=== PATIENT | male | born 1950 | race Caucasian/White ===

== ENCOUNTER 2017-02-06 16:53 | Inpatient (IN) | payer OTHER ==
[2017-02-06 19:07] LABS: MANUAL DIFF NEEDED? NO
[2017-02-06 19:12] LABS: BASO% 0.2 % (0.0-0.8); EOS# 0.31 X1000 (0.0-0.7); EOS% 1.9 % (0.0-10.0); HEMATOCRIT 43.5 % (42.0-52.0); HEMOGLOBIN 14.4 g/dL (14.0-18.0); IMM GRAN# 0.07 X1000 (0.0-0.04); IMM GRAN% 0.4 % (0.0-0.5); LYMPH% 12.3 % (20.5-51.1); MCH 29.9 PG (27-31); MCHC 33.1 g/dL (33-37); MCV 90.4 FL (81-99); MONO# 1.08 X1000 (0.11-0.59); MONO% 6.7 % (1.7-9.3); MPV 12.1 FL (7.4-10.4); NEUT% 78.5 % (42.2-75.2); PLT 257 X1000 (130-400); RBC 4.81 XMIL (4.7-6.1)
[2017-02-06] MEDS ORDERED: NS 1,000 ML IV ONE (19:22)
[2017-02-06 19:31] LABS: AGAP 17; ALBUMIN 3.8 g/dL (3.5-5.0); ALKALINE PHOSPHATASE 191 U/L (32-122); BUN 11 mg/dL (8-22); CALCIUM 7.3 mg/dL (8.8-10.2); CHLORIDE 102 mmol/L (98-107); COSMO 284; GOT 45 U/L (10-34); GPT 65 U/L (10-44); POTASSIUM 3.7 mmol/L (3.5-5.1); SODIUM 141 mmol/L (136-145); TCO2 22 mmol/L (25-35); TOTAL BILIRUBIN 1.17 mg/dL (0.20-1.00); TOTAL PROTEIN 6.5 g/dL (6.3-8.3)
--- NOTE | 2017-02-06 19:37 | PROVIDER DOCUMENTATION ---
HPI-General Adult - General Chief Complaint: Rectal Bleeding Stated Complaint: RECTAL BLEEDING Time Seen by Provider: 02/06/17 18:40 Allergies/Adverse Reactions: Patient Allergies Allergy/AdvReac Type Severity Reaction Status Date / Time No Known Allergies Allergy Verified 02/06/17 18:36 Home Medications: Home Medication List Medication Instructions Recorded Confirmed Last Taken Type Amlodipine Besylate/Benazepril 1 each PO DAILY 01/20/14 02/06/17 02/06/17 09:00 History [Lotrel 10/20 mg Capsule] Bisoprolol/Hctz [Ziac 10/6.25 mg] 1 each PO DAILY 01/20/14 02/06/17 02/06/17 09: 00 History Insuln Asp Prt/Aspart [Novolog Mix 20 unit SUBQ QPM 01/20/14 02/06/17 02/06/17 09:00 History 70/30] Omeprazole [Prilosec] 20 mg PO DAILY 01/20/14 02/06/17 01/22/14 04:30 History - History of Present Illness -Gen Adult Nature of Presenting Problems: Pt was discharged from just prior to driving here. He was admitted for N/V and syncope. He had a BP with rectal bleeding and made the staff aware and they called the doctor and discharged him. He also was told that he has a lung mass at that was biopsied and he is to follow up with a pulm in [place]. He came here for the rectal bleeding. Adrien blood noted on patients pants, boxers and soaked through to bedding Review of Systems - Adult - REVIEW OF SYSTEMS - ADULT Constitutional: reports: no symptoms reported. denies: chills, fever, weight gain, weight loss Eyes: reports: no symptoms reported. denies: discharge, dry eyes, decreased vision, double vision, eye pain, redness Ears, Nose, Mouth & Throat: reports: no symptoms reported. denies: hearing loss , tinnitus, epistaxis, sinus problem, loose teeth, mouth/dental pain, mouth swelling, hoarseness, throat swelling Cardiovascular: reports: no symptoms reported. denies: chest pain, edema, irregular heart rate, poor circulation, PND, syncope Respiratory: reports: no symptoms reported. denies: chronic cough, cough, excessive sputum production, pleurisy, shortness of breath Gastrointestinal: reports: see HPI, rectal bleeding. denies: abdominal pain, hematemesis, constipation, diarrhea, difficulty swallowing, frequent heartburn, nausea, poor appetite, vomiting Genitourinary: reports: no symptoms reported. denies: dysuria, discharge, flank pain, hematuria, incontinence, urinary retention, urgency Musculoskeletal: reports: no symptoms reported. denies: bone pain, back pain, frequent leg cramps, joint pain, muscle aches, muscle weakness, neck pain Integumentary: reports: no symptoms reported. denies: hives, hair loss, itching , nail changes, rash, skin sores/ulcer, skin thickening Neurological: reports: no symptoms reported. denies: ataxia, dizziness/vertigo , headache/migraines, loss of balance, paresthesia, seizure, slurred speech, syncope, tremors Psychiatric: reports: no symptoms reported. denies: anxiety, alcohol/drug dependence, depression, insomnia, panic attacks, suicidal thoughts Endocrine: reports: no symptoms reported. denies: change in skin pigment, excessive sweating, goiter, cold intolerance, increased hunger, increased thirst , polyuria Hematologic/Lymphatic: reports: no symptoms reported. denies: blood clots, easy bruising, lymphedema, swollen lymph nodes, transfusions Allergic/Immunologic: reports: no symptoms reported. denies: allergic reactions , allergic rhinitis, asthma, eczema, frequent infections, hay fever, urticaria All Other Systems: Reviewed and Negative Past History - Adult - PAST MEDICAL HISTORY-ADULT Review of Records: reports: Old Records Reviewed, Nursing Assessment Review, Medications Reviewed, Social history reviewed & non-contributory. Major Childhood Illnesses: reports: denies history Cardiovascular: reports: HTN, heart valve problem Respiratory: reports: COPD, other (lung mass unspecified ) Gastrointestinal: reports: liver disease, pancreatitis Obstetrical/Gynecological: reports: denies history Genitourinary: reports: denies history Musculoskeletal: reports: denies history Neurological: reports: denies history Endocrine/Immune: reports: denies history Other Conditions: reports: denies history - PRIOR SURGERIES/PROCEDURES Surgical/Procedure History: reports: reviewed, not pertinent - PRIOR HOSPITALIZATIONS Prior Hospitalizations: reports: for other non-related - IMMUNIZATION STATUS Childhood Immunizations: See Nurse Assessment Flu Vaccine: See Nurse Assessment - FAMILY HISTORY Family History: reviewed, not pertinent - SOCIAL HISTORY Smoking: cigarettes, greater than 1 pack/day Provider spent 3-5 mins advising pt. on dangers of tobacco.: Discussed manners to quit use, and f/u contacts for add'l counseling. Substance Use: none presently/history of abuse, alcohol Alcohol Use Frequency: never Living Situation: family Physical Exam-General - PHYSICAL EXAM-ADULT Initial Vital Signs Reviewed: Yes - CONSTITUTIONAL General Appearance: appears well, alert, no apparent distress - EYES Eyes: PERRL/EOMI, pink conjunctivae - HEAD, EARS, NOSE, MOUTH & THROAT HENMT: normocephalic/atraumatic, moist mucous membranes, normal ENT inspection - NECK Neck: non-tender, full range of motion - RESPIRATORY Respiratory: chest non-tender, no pleuratic chest pain, no respiratory distress , no accessory muscle use, wheezing (mild) - CARDIOVASCULAR Cardiovascular: normal peripheral pulses, regular rate, rhythm - GASTROINTESTINAL (ABDOMEN) Abdominal Exam: normal bowel sounds, non tender, soft - GENITOURINARY Male Genitalia: deferred - MUSCULOSKELETAL Back Exam: normal inspection, no CVA tenderness, no vertebral tenderness Extremity: normal range of motion, non-tender, normal gait, normal inspection - SKIN Integumentary: normal color, normal turgor, warm/dry - NEUROLOGIC Neurologic: administrative medical director II-XII nml as tested, grossly normal - PSYCHIATRIC Psych/Mental Status: normal thought content, normal thought process, oriented x 3, anxious Progress - PLAN OF CARE/RESULTS Progress/Plan/Lab Results: Laboratory Tests 02/06/17 02/06/17 02/06/17 18:44 18:44 19:48 WBC 16.21 H RBC 4.81 Hgb 14.4 Hct 43.5 MCV 90.4 MCH 29.9 MCHC 33.1 RDW Std Deviation 13.8 Plt Count 257 MPV 12.1 H Immature Gran % (Auto) 0.4 Neut % (Auto) 78.5 H Lymph % (Auto) 12.3 L Wise % (Auto) 6.7 Eos % (Auto) 1.9 Baso % (Auto) 0.2 Immature Gran # (Auto) 0.07 H Neut # (Auto) 12.72 H Lymph # (Auto) 2.00 Wise # (Auto) 1.08 H Eos # (Auto) 0.31 Baso # (Auto) 0.03 PT 11.5 INR 1.13 Sodium 141 Potassium 3.7 Chloride 102 Carbon Dioxide 22 L Anion Gap 17 BUN 11 Creatinine 0.7 Estimated GFR/1.73 m2 > 60 BUN/Creatinine Ratio 16 Glucose 156 H Calculated Osmolality 284 Calcium 7.3 L Total Bilirubin 1.17 H AST 45 H ALT 65 H Alkaline Phosphatase 191 H Total Protein 6.5 Albumin 3.8 Globulin 2.7 Albumin/Globulin Ratio 1.4 Urine Source Urine Color Urine Turbidity Urine pH Ur Specific Terral Urine Protein Ur Glucose (Stick) Ur Ketones (Stick) Urine Blood Urine Nitrite Urine Bilirubin Urobilinogen Dipstick Urine Leukocytes Urine WBC (Auto) Urine RBC (Auto) U Epithel Cells (Auto) Urine Bacteria (Auto) Blood Type Antibody Screen 02/06/17 02/06/17 19:48 20:48 WBC RBC Hgb Hct MCV MCH MCHC RDW Std Deviation Plt Count MPV Immature Gran % (Auto) Neut % (Auto) Lymph % (Auto) Wise % (Auto) Eos % (Auto) Baso % (Auto) Immature Gran # (Auto) Neut # (Auto) Lymph # (Auto) Wise # (Auto) Eos # (Auto) Baso # (Auto) PT INR Sodium Potassium Chloride Carbon Dioxide Anion Gap BUN Creatinine Estimated GFR/1.73 m2 BUN/Creatinine Ratio Glucose Calculated Osmolality Calcium Total Bilirubin AST ALT Alkaline Phosphatase Total Protein Albumin Globulin Albumin/Globulin Ratio Urine Source CLEAN CATCH Urine Color YELLOW Urine Turbidity CLEAR Urine pH 7.0 Ur Specific Terral 1.009 Urine Protein NEGATIVE Ur Glucose (Stick) NEGATIVE Ur Ketones (Stick) 10 A Urine Blood NEGATIVE Urine Nitrite NEGATIVE Urine Bilirubin NEGATIVE Urobilinogen Dipstick NORMAL Urine Leukocytes NEGATIVE Urine WBC (Auto) <10 Urine RBC (Auto) <10 U Epithel Cells (Auto) <10 Urine Bacteria (Auto) NEGATIVE Blood Type O POSITIVE Antibody Screen NEGATIVE Orders Category Date Time Status Orthostatic Vital Signs NOW Care 02/06/17 18:29 Active CBC WITH DIFF [HEME] Stat Lab 02/06/17 18:44 Completed COMPREHENSIVE METABOLIC PANEL [CHEM] Stat Lab 02/06/17 18:44 Completed OCCULT BLOOD DIAGNOSTIC [STOOL] Stat Lab 02/06/17 18:41 Uncollected PROTIME WITH INR [COAG] Stat Lab 02/06/17 19:48 Completed TYPE & SCREEN [BBK] Stat Lab 02/06/17 19:48 Completed UA NIMS W/REFLEX CULT [URINALYSIS] Stat Lab 02/06/17 20:48 Completed 0.9% Sodium Chloride Inj [Ns] 1,000 ml Med 02/06/17 19:22 Discontinued IV 999 mls/hr Nicotine Patch [Nicoderm Patch] Med 02/06/17 19:40 Discontinued 21 mg TD NOW ONE Vital Signs - 24 hr 02/06/17 02/06/17 02/06/17 17:08 20:02 20:10 Temperature 98.7 F Pulse Rate 113 H 90 Pulse Rate [ 96 H Sitting] Pulse Rate [ 100 H Standing] Pulse Rate [ 96 H Supine] Respiratory 18 30 H Rate Blood Pressure 153/92 160/97 Blood Pressure 151/93 [Sitting] Blood Pressure 160/97 [Standing] Blood Pressure 172/86 [Supine] O2 Sat by Pulse 98 98 Oximetry - CONSULTS/PCP/HOSPITALIST Notification #1 *Consult/PCP/Hospitalist*: gin Time Discussed: 21:16 Consult Disposition: Will see in ED, Admit Departure - Departure Time of Disposition Order: 21:16 DIAGNOSIS: Lower GI bleed Syncope Qualifiers: Syncope type: unspecified Qualified Code(s): R55 - Syncope and collapse Disposition: HOME 01 Certified Medical Emergency: Emergent Condition: Good Additional Instructions: ED Follow Up Instructions: You have been treated by a care provider in the Emergency Department. These instructions are being provided to you so you can have an understanding of how to care for yourself upon discharge. Upon discharge from the Emergency Department, you are responsible for making arrangements for follow-up care by a physician of your choice. Take all prescribed medications as directed. Return to the Emergency Department immediately for any new or worsening symptoms. You may call the Physician Referral phone number at [phone] to obtain a list of Physicians who are taking new patients. Referrals: Walker Ly MD [Primary Care Provider] - Attestation - Physician/ GRETEL Attestation Patient care was provided by Advanced Practice Provider:: Yes Advanced Practice Provider:: Ventura Nuñez Advanced Practice Provider documentation review:: The Mid-level provider documentation, treatment plan and medical decision making was reviewed by the physician who agrees with all treatment and medical decision making by the MLP.
[2017-02-06] MEDS ORDERED: NICODERM PATCH TD ONE (19:40)
[2017-02-06 20:45] LABS: INR 1.13; PROTIME 11.5 Seconds (9.2-11.7)
[2017-02-06 21:03] LABS: URINE CULTURE NEEDED? NO; URINE MICRO REVIEW NEEDED? NO; URINE SOURCE CLEAN CATCH
[2017-02-06 21:10] LABS: BILIRUBIN URINE NEGATIVE (NEGATIVE); BLOOD URINE NEGATIVE (NEGATIVE); COLOR YELLOW; GLUCOSE URINE NEGATIVE (NEGATIVE); LEUKOCYTES URINE NEGATIVE (NEGATIVE); NITRITE URINE NEGATIVE (NEGATIVE); PROTEIN URINE NEGATIVE (NEGATIVE); SP GRAVITY URINE 1.009; TURBIDITY URINE CLEAR (CLEAR); UR EPITHELIAL CELLS <10 /HPF (<10); URINE BACTERIA NEGATIVE /HPF; URINE RBC <10 /HPF (<10); URINE WBC <10 /HPF (<10); UROBILINOGEN URINE NORMAL (NORMAL)
[2017-02-06] MEDS ORDERED: ANTIVERT PO ONE (22:32)
--- NOTE | 2017-02-06 22:45 | HISTORY AND PHYSICAL ---
CHIEF COMPLAINT: Dizziness. PRIMARY CARE PHYSICIAN: Dr. Walker Ly. HISTORY OF PRESENTING ILLNESS: A 66-year-old male with a history of hypertension, diabetes mellitus type 2, chronic pancreatitis apparently was admitted in [facility] just recently for treatment of dizziness. He states that the recently they found that he a small lung mass also. The patient states that he does not really recall what his diagnosis was for at [facility] and does not know the results of his tests. He states that when he was discharged home today he still started getting dizzy and was having some rectal bleeding. Subsequently had come to [place] emergency department. The patient was evaluated here and due to his presenting symptoms, it was thought that he would need hospitalization for further management. At the time of my examination he had denied any headache, fever, chills, chest pain, shortness of breath, hemoptysis or any weight changes but did complain of being dizzy and having some ringing in his ears and also states that he is having some rectal bleeding and diarrhea. PAST MEDICAL HISTORY: Includes hypertension, diabetes mellitus type 2, chronic pancreatitis, chronic back pain. PAST SURGICAL HISTORY: Back surgery. Hernia repairs. ALLERGIES: No known drug allergies. CURRENT MEDICATIONS: As listed in [facility]. SOCIAL HISTORY: Fifty pack years history of smoking. Denies any history of alcohol or illicit drug use. FAMILY HISTORY: No history of coronary disease. REVIEW OF SYSTEMS: Twelve point review of systems is as in HPI. Other systems negative. PHYSICAL EXAMINATION: GENERAL: Cooperative, friendly male. He is resting more comfortably now. VITAL SIGNS: Temperature 98.7 degrees, pulse 113, respiration 18, blood pressure 153/92, saturating 98%. HEENT: Atraumatic, normocephalic. Extraocular movements intact. PERRLA. NECK: No masses. CHEST: Clear to auscultation. CARDIOVASCULAR: Regular rate and rhythm. ABDOMEN: Soft. Positive bowel sounds. EXTREMITIES: No edema. NEURO: He is awake, alert, oriented x3. : No bladder distention. SKIN: Warm. LABORATORIES AND STUDIES: WBC 16.21, hemoglobin 14.4, hematocrit 43.5, platelets 257,000. Sodium 141, potassium 2.7, chloride 102, CO2 of 22, BUN is 11, creatinine 0.7, glucose is 157. ASSESSMENT: A 66-year-old male with a history of hypertension, diabetes mellitus type 2 and chronic pancreatitis apparently was just discharged from [facility] after evaluation for dizziness. However patient states that his symptoms did not improve. He started getting dizzy when he was in the car and started having some rectal bleeding. Due to his presenting symptoms, he will need hospitalization for further management. 1. Dizziness, possible benign positional vertigo versus other etiology. 2. Rectal bleeding along with diarrhea. 3. Leukocytosis. 4. Hypertension. 5. Diabetes mellitus type 2. PLAN: 1. We will admit patient to medical floor with telemetry. 2. We will check orthostatic blood pressure and pulse. 3. We will start patient on meclizine. 4. We will consult Gastroenterology, monitor hemoglobin and hematocrit. 5 Start patient on empiric antibiotics for his leukocytosis. Check blood cultures. 6. Monitor blood pressure closely. 7. Will pressure put patient on a sliding scale insulin regimen. 8. We will continue to follow and reassess. Please note that we will put patient on DVT prophylaxis with SCDs. RASHIDA
[2017-02-07] MEDS ORDERED: ZOFRAN IV PRN (00:43)
[2017-02-07] MEDS ORDERED: ANTIVERT PO PRN (00:43)
[2017-02-07] MEDS: NS 1,000 ML IV SCH ×2 (01:37→11:53)
[2017-02-07 05:22] LABS: BASO% 0.2 % (0.0-0.8); EOS# 0.42 X1000 (0.0-0.7); EOS% 2.8 % (0.0-10.0); HEMATOCRIT 38.7 % (42.0-52.0); HEMOGLOBIN 12.9 g/dL (14.0-18.0); IMM GRAN# 0.05 X1000 (0.0-0.04); IMM GRAN% 0.3 % (0.0-0.5); LYMPH# 2.57 X1000 (1.2-3.4); LYMPH% 17.3 % (20.5-51.1); MANUAL DIFF NEEDED? NO; MCH 29.9 PG (27-31); MCHC 33.3 g/dL (33-37); MCV 89.6 FL (81-99); MONO# 1.16 X1000 (0.11-0.59); MONO% 7.8 % (1.7-9.3); MPV 11.8 FL (7.4-10.4); NEUT% 71.6 % (42.2-75.2); PLT 249 X1000 (130-400); RBC 4.32 XMIL (4.7-6.1)
[2017-02-07 05:48] LABS: AGAP 15; BUN 8 mg/dL (8-22); CALCIUM 7.3 mg/dL (8.8-10.2); CHLORIDE 104 mmol/L (98-107); COSMO 284; POTASSIUM 3.4 mmol/L (3.5-5.1); SODIUM 142 mmol/L (136-145); TCO2 23 mmol/L (25-35)
--- NOTE | 2017-02-07 07:57 | Diag Imaging Result Document ---
PROCEDURE NAME: CHEST-1 VIEW - 02/06/2017 PORTABLE CHEST X-RAY: COMPARISON: 01/20/2014. FINDINGS: There is a new large rounded infiltrate or mass in the left mid lung. This measures 7 x 9 cm in craniocaudal and lateral dimensions. Heart size remains grossly normal. IMPRESSION: Large round infiltrate or mass in the left mid lung. Chest CT recommended.
[2017-02-07] MEDS: HUMULIN R SUBQ SCH ×4 (08:50→21:08)
[2017-02-07] MEDS ORDERED: PRILOSEC PO SCH (09:00)
[2017-02-07 11:05] LABS: HEMATOCRIT 39.2 % (42.0-52.0); HEMOGLOBIN 12.9 g/dL (14.0-18.0)
[2017-02-07] MEDS ORDERED: LOTREL 5/10 MG PO SCH (11:15)
[2017-02-07] MEDS: ZIAC 10/6.25 MG PO SCH (11:53)
[2017-02-07] MEDS: LOTREL 5/10 MG PO SCH (12:11)
--- NOTE | 2017-02-07 12:40 | CONSULTATION ---
DATE OF CONSULTATION: 02/07/2017 REASON FOR REFERRAL: Rectal bleeding. HISTORY OF PRESENT ILLNESS: This is a 66-year-old male who reports just being discharged from [facility]. He had went there for complaints of dizziness. Under evaluation there he was found to have a small lung mass. He reports having a biopsy but does not know the results of that. He states the day that he was discharged, yesterday, prior to leaving [facility] he reports having an episode of diarrhea and then noticed a small amount of blood in the stool. After leaving, he continued to have some rectal bleeding and came to [place] for evaluation and was transferred to [facility] for admission and further evaluation. The patient reports having several episodes of bright red blood. He does continue to have dizziness. He states this been this has been going on for years. He did report an episode of nausea and vomiting but denied hematemesis. He has reported several episodes of diarrhea, reports some abdominal cramping. On review of our records at the office, he has had a colonoscopy within the last year. Last one done in May,. 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 He currently denies chest pain. He has reported some occasional shortness of breath. He has noted some dysuria since his hospitalization at [facility]. He states he had an in- and out catheterization done there and has had a little bit of dysuria since then. PAST MEDICAL HISTORY: 1. Hypertension. 2. Diabetes type 2. 3. History of chronic pancreatitis. He was seen in the past at [facility] in 2004 for his history of chronic pancreatitis. At that time he had seen Dr. Lu at [facility] and had a cholecystectomy, choledochoduodenostomy. He states he has not had any problems with pancreatitis since then. 4. 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 PAST SURGICAL HISTORY: 1. As noted cholecystectomy and choledochoduodenostomy in 2004. 2. Back surgeries. 3. Hernia repairs. 4. Stent to the left leg. ALLERGIES: No known drug allergies. SOCIAL HISTORY: Positive for tobacco use. He smokes 2 packs of cigarettes daily. He denies alcohol use. He quit in 2000. HOME MEDICATIONS: 1. Prilosec 20 mg daily. 2. NovoLog insulin 70/30, 20 units every night. 3. Bisoprolol/hydrochlorothiazide 10/6.25 mg daily. 4. Amlodipine/benazepril 10/20 mg daily. REVIEW OF SYSTEMS: HEENT: He has reported dizziness that has been chronic over the last five years per patient's report. He was recently admitted to [facility] for dizziness. Cardiovascular: Denies chest pain or palpitations. Pulmonary: He has reported some shortness of breath. Gastrointestinal: Reports onset of rectal bleeding yesterday. He has noted some abdominal pain. He had some episodes of nausea and vomiting with no reported hematemesis. Genitourinary: He reports dysuria since he was in [facility]. He had an in out catheterization done there and reports some dysuria since that was done. Neurologic: No history of stroke or seizures. Musculoskeletal: History of back surgeries and arthritis. PHYSICAL EXAM: Vital Signs: Temperature 97.6 degrees, pulse 107, respirations 18, blood pressure 172/105. General: Patient is lying in bed in no acute distress. HEENT: Normocephalic, atraumatic. Pupils equal, round, reactive to light. Sclerae nonicteric. Cardiovascular: Regular rate and rhythm. Chest: He has some mild expiratory wheezing to the left upper lobe. Otherwise essentially clear. Abdomen: Soft. Positive bowel sounds. Some mild tenderness to lower abdomen with palpation. Extremities: No lower extremity edema noted. Neurological: Cranial nerves 2-12 grossly intact. Patient is awake, alert, oriented to person, place, and time. DIAGNOSTIC RESULTS: Laboratory, hematology white count 14.82. Hemoglobin 12.9, hematocrit 39.2, MCV 89.6, platelets 249,000. Coagulation ProTime 11.5, INR 1.13, chemistry sodium 142, potassium 3.4, chloride 104, CO2 23, BUN 8, creatinine 0.7. Glucose 142, calcium 7.3, total bilirubin 1.17, AST 45, ALT 65, alkaline phosphatase 191. IMAGING: Chest x-ray, showed large round infiltrate or mass in the left mid lung. This corresponds to patient's report of new finding at [facility]. The patient reports having a biopsy done and he does not know the results of that yet. ASSESSMENT AND PLAN: 1. Dizziness with recent admission to [facility]. 2. Rectal bleeding. 3. Diarrhea. 4. Leukocytosis. 5. Hypertension. 6. Diabetes. 7. Abnormal chest x-ray with finding of infiltrate versus mass in the left mid lung. Patient had been evaluated at [facility] and had a lung biopsy done with no results available as of yet. PLAN: Continue supportive care. Monitor hemoglobin and hematocrit. Monitor for active bleeding. We will repeat Hematocrit and hemoglobin, transfuse packed red blood cells if indicated. We will plan for a colonoscopy tomorrow. Patient will have a colon prep today. I have discussed the likelihood of proceeding with a colonoscopy procedure by Dr. Haney, but since Dr. Briceño is off this week, further plans will be made according to findings. Patient voices understanding. Further plans will be made as needed. Thank you for this consultation. Dictated by ELIAS Vuong for Chance Briceño MD
[2017-02-07] MEDS ORDERED: GOLYTELY PO ONE (14:00)
[2017-02-07] MEDS: NICODERM PATCH TD SCH (16:52)
--- NOTE | 2017-02-07 19:31 | CONSULTATION ---
DATE OF CONSULTATION: 02/07/2017 REFERRING PHYSICIAN: Walker Ly MD. PRIMARY LEAD GENERATION SPECIALIST: Dr. Chance Briceño MD. INDICATION FOR CONSULTATION: Rectal bleeding. HISTORY OF PRESENT ILLNESS: This is a 66-year-old, white male who is followed by Dr. Chance Briceño. He was recently admitted to [facility] with weakness, nausea with vomiting and epigastric pain. His symptoms were concerning for myocardial infarction, and therefore he was transferred there. His reports that for the 3-4 days prior to his transport to [facility], he had projectile nausea with vomiting that led to profound weakness. Upon admission, he was noted to have hypokalemia. They evaluated his chest and was found to have a small lung mass. The patient states that the evaluation of his weakness and nausea with vomiting was placed on hold pending further evaluation of the lung mass. He underwent a lung biopsy but does not have the results. On the day of discharge, he developed diarrhea and blood in the stool. According to his , they asked that it be evaluated prior to discharge but it was recommended that he see Dr. Briceño in consultation. He was discharged to home in the morning but presented to [place] emergency room the same day, with recurrent rectal bleeding. He was evaluated in the emergency room, where he had several episodes of rectal bleeding. He was admitted on 02/06/2017 for further evaluation. The patient continues to have rectal bleeding although it is less than when he was at home yesterday. He notes the dizziness, nausea with a small amount of emesis but no hematemesis. He notes significant diarrhea even before beginning the bowel prep in anticipation of having a colonoscopy performed. He underwent a colonoscopy in 2016 where he was found to have multiple polyps, diverticulosis and AVMs in the ascending colon. We are asked to perform endoscopic evaluation. Dr. Briceño is currently out of the office and I will be covering for the next 2-3 days. PAST MEDICAL HISTORY: 1. Hypertension. 2. Diabetes 2. 3. Chronic pancreatitis. 4. Common bile duct stricture. PAST SURGICAL HISTORY: 1. Cholecystectomy. 2. Choledochoduodenostomy [place] [address] Lu at [facility]. 3. Back surgery. 4. Hernia repair. 5. Stent to the left lower extremity. MEDICATION ALLERGIES: None. HOME MEDICATIONS: 1. Prilosec 20 mg daily. 2. NovoLog insulin. 3. Bisoprolol/hydrochlorothiazide. 4. Amlodipine/benazepril. SOCIAL HISTORY: The patient smoked 2 packs per day of cigarettes. He previously drank heavily. He stopped drinking in 2000. He denies recreational drug use. REVIEW OF SYSTEMS: Positive for mild nausea and recurrent rectal bleeding. He has had some vomiting overnight but denies vomiting at present. On exam, he is in no acute distress.Vital Signs: His blood pressure is 172/105 with a pulse of 107, respirations 18, temperature of 97.6 degrees. HEENT: Negative for jaundice. His conjunctivae are pale. His oropharyngeal mucosal membranes are dry. Pulmonary: Lungs are clear to auscultation with normal expiratory effort. Cardiovascular: Reveals a resting tachycardia. His rhythm is regular. There are no gallops, murmurs or rubs. Abdominal Exam: Reveals normoactive bowel sounds. The abdomen is soft, nontender, with no rebound or guarding. Extremities: Bilaterally are negative for cyanosis, clubbing, or edema. OBJECTIVE DATA: Remarkable for hemoglobin of 12.9 with hematocrit of 39.2, which is an interval drop in hemoglobin from admission. It is also an interval drop in hemoglobin from his previous hemoglobins and hematocrit recorded in the computer. His white blood cell count is 14.82 and he has 249,000 platelets. Sodium is 142, potassium 3.4, chloride 104, CO2 of 23, BUN 8, creatinine 0.7 with a glucose of 142. Calcium is 7.3. On admission on 02/06/2017, his PT is 11.5 with an INR of 1.13. His liver function tests were elevated with a total bilirubin of 1.17, AST 45, ALT 65 and alkaline phosphatase 191. His total protein 6.5, and albumin 3.8. IMPRESSION: 1. Nausea with vomiting. 2. Weakness. 3. Hypokalemia. 4. Diarrhea. 5. Rectal bleeding. 6. Low abdominal pressure on exam. 7. Elevated liver function tests. 8. Normocytic anemia with acute blood loss. RECOMMENDATION: 1. We will plan to perform an EGD and colonoscopy tomorrow. Because of his interval change in bowel habits, I will plan to biopsy both the small bowel and colon. 2. Continue a clear liquid diet. 3. The patient is currently undergoing a GoLYTELY bowel prep. 4. Continue IV fluids during bowel prep as you are doing to avoid dehydration. 5. I would discontinue the omeprazole and begin Protonix 40 mg IV q.12 hours. This will help minimize acid production and help with the nausea with vomiting. 6. He has elevated liver function tests which warrants further evaluation. I will defer to Dr. Chance Briceño for further evaluation of this pending endoscopic evaluation. 7. Additional recommendations to follow based on his clinical course. 8. Please see the detailed dictation by Raiza Ritchie, nurse practitioner and Dr. Chance Briceño MD.
[2017-02-07] MEDS: SODIUM CHLORIDE 0.9% INJ SCH (21:07)
[2017-02-07] MEDS: PROTONIX IV SCH (21:07)
[2017-02-08] MEDS: NS 1,000 ML IV SCH ×3 (05:21→17:57)
[2017-02-08] MEDS: PROTONIX IV SCH ×2 (05:35→18:38)
[2017-02-08] MEDS: HUMULIN R SUBQ SCH ×3 (06:46→16:28)
--- NOTE | 2017-02-08 08:02 | PROGRESS NOTE ---
DATE: 02/08/2017 OBJECTIVE: Vital Signs: Stable with temperature 99.1 degrees, heart rate 93, respirations 20, blood pressure 158/73, O2 saturation 93% on room air. LABORATORY DATA: Hematocrit is 35. ASSESSMENT: He has had no further rectal bleeding. PLAN: Colonoscopy and possible EGD by Dr. Haney today. If etiology for his bleeding is discovered and controlled, he may be able to go home this afternoon.
[2017-02-08] MEDS ORDERED: LOTREL 5/10 MG PO SCH (09:00)
[2017-02-08] MEDS: ZIAC 10/6.25 MG PO SCH (09:37)
[2017-02-08] MEDS: NICODERM PATCH TD SCH (09:39)
[2017-02-08] MEDS ORDERED: MYLICON DROPS (DOSE) MISC ONE (16:41)
[2017-02-08] MEDS ORDERED: DIPRIVAN 1% ONE (17:56)
[2017-02-08] MEDS: SODIUM CHLORIDE 0.9% INJ SCH (18:39)
[2017-02-08] MEDS: LOTREL 5/10 MG PO SCH (18:39)
[2017-02-08 18:40] LABS: MANUAL DIFF NEEDED? NO
[2017-02-08 18:53] LABS: BASO% 0.2 % (0.0-0.8); EOS# 0.35 X1000 (0.0-0.7); EOS% 2.2 % (0.0-10.0); HEMOGLOBIN 12.7 g/dL (14.0-18.0); IMM GRAN# 0.04 X1000 (0.0-0.04); IMM GRAN% 0.2 % (0.0-0.5); LYMPH# 3.14 X1000 (1.2-3.4); LYMPH% 19.6 % (20.5-51.1); MCH 30.2 PG (27-31); MCHC 33.4 g/dL (33-37); MCV 90.3 FL (81-99); MONO# 1.29 X1000 (0.11-0.59); MPV 11.2 FL (7.4-10.4); NEUT% 69.8 % (42.2-75.2); PLT 307 X1000 (130-400); RBC 4.21 XMIL (4.7-6.1)
[2017-02-08 19:03] LABS: INR 1.26; PROTIME 13.4 Seconds (9.2-11.7)
[2017-02-08 19:10] LABS: PTT HEPARIN PROTOCOL 30.3 Seconds
[2017-02-08] MEDS: CARAFATE LIQUID PO SCH (20:18)
[2017-02-09] MEDS: HUMULIN R SUBQ SCH ×5 (00:33→20:55)
[2017-02-09] MEDS: CARAFATE LIQUID PO SCH ×4 (03:16→20:52)
--- NOTE | 2017-02-09 04:07 | OPERATIVE NOTE ---
PROCEDURE DATE: 02/08/2017 REFERRING PHYSICIAN: Walker Ly MD PRIMARY TERADATA SOLUTION ARCHITECT: Chance Briceño MD INDICATION FOR PROCEDURE: 1. Nausea with vomiting. 2. Abdominal pain. 3. Diarrhea. 4. Rectal bleeding. 5. Lung mass. PROCEDURE PERFORMED: Esophagogastroduodenoscopy with biopsy. CONSENT: Informed consent was obtained from the patient prior to the procedure. The risks, benefits, and alternatives were discussed. MEDICATION: The patient received monitored anesthesia care. PERFORMING PHYSICIAN: Sarah Haney MD ASSISTANTS: 1. SUSY Tilley 2. Dwayne Duenas RN 3. Lady Mendoza CRNA 4. Dorian Walters MD (anesthesia) COMPLICATIONS: There were no complications. ESTIMATED BLOOD LOSS: 1-2 mL. SPECIMENS REMOVED: 1. Duodenal biopsy. 2. Duodenal mass biopsy. 3. Antral biopsies. 4. Thickened gastric fold biopsies. FINDINGS: After sedation was achieved, the upper endoscope was inserted to the duodenum. The hypopharynx appeared endoscopically normal. In the tubular esophagus, the mucosa appeared normal in the upper and middle esophagus. At the distal esophagus and particularly around the GE junction, there was mild erythema with superficial erosions at the GE junction consistent with grade B erosive esophagitis. In the gastric lumen, there was severe erosive gastritis with thickened gastric folds and retained gastric secretions. On retroflexed view of the fundus, the mucosal folds were thickened and hyperemic with scattered superficial erosions. On forward view, there were 2 superficial antral ulcers with whitish base and no stigmata of bleeding. The pylorus appeared grossly normal. In the duodenal bulb, there was duodenitis. However, there was a large polypoid mass versus large polyp that was near circumferential. Multiple biopsies were taken. The lumen was compromised but we were successful in passing the scope into the distal duodenum without obstruction. Beyond the large mass, there were multiple small duodenal polyps that were visualized. After biopsies were taken, the lumen was decompressed and the scope was removed without incident. IMPRESSION: 1. Grade B erosive esophagitis. 2. Erosive gastritis. 3. Retained gastric secretions. 4. Antral ulcers x2. 5. Duodenal bulb mass versus polyp. 6. Duodenitis. 7. Duodenal polyps. RECOMMENDATION: 1. Await biopsies. 2. Continue Protonix 40 mg IV q.12 hours. 3. Begin Carafate suspension 1 g p.o. 4 times a day. 4. Because of the patient's recently diagnosed chest mass, I would obtain a chest abdomen and pelvis CT to determine if this is small bowel lesion is malignant. 5. If he does have evidence of malignancy, I would consider referring him back to [facility] to see Dr. Lu in consultation. Dr. Lu performed his pancreas surgery at [facility] in the past. 6. I will also consult Dr. Sharee Martell from Hematology/Oncology for participation in his care. 7. We will proceed with the colonoscopy as previously scheduled.
--- NOTE | 2017-02-09 04:17 | OPERATIVE NOTE ---
PROCEDURE DATE: 02/08/2017 INDICATION FOR PROCEDURE: 1. Nausea with vomiting. 2. Diarrhea. 3. Rectal bleeding. 4. Recent diagnosis of a lung mass. PROCEDURE PERFORMED: Colonoscopy with biopsy. CONSENT: Informed consent was obtained from the patient prior to the procedure. The risks, benefits, and alternatives were discussed with the patient and his . MEDICATIONS: The patient received monitored anesthesia care. PERFORMING PHYSICIAN: Sarah Haney MD ASSISTANTS: 1. ST Jarek 2. Dwayne Duenas RN 3. Lady Mendoza CRNA 4. Dorian Walters MD (anesthesia) COMPLICATIONS: There were no complications. ESTIMATED BLOOD LOSS: 1-2 mL. SPECIMENS REMOVED: Random colon. CECAL INTUBATION TIME: Six minutes. WITHDRAWAL TIME: Eleven minutes. PREP QUALITY: Poor. FINDINGS: After sedation was achieved, an EGD performed, the patient was repositioned. The pediatric colonoscope was inserted to the cecum. The appendiceal orifice and ileocecal valve appeared endoscopically normal. Upon withdrawal, there were cecal arteriovenous malformations. There was also an ascending colon polyp that was approximately 10-12 mm in size. In addition, there were multiple smaller polyps that ranged from 5-10 mm in size that remained intact. The ascending colon and the cecal base were coated with thick tenacious fecal residue that was poorly evacuated despite suctioning. Upon further withdrawal, there were multiple nonbleeding AVMs present in the cecum and ascending colon. In the transverse colon, descending colon, and sigmoid colon, there were numerous polyps that ranged in size from 3-15 mm. Because of the poor bowel prep, these polyps remained intact. There was diverticulosis in the descending and sigmoid colon. There was no evidence of diverticulitis and therefore, no further intervention was performed. In the upper rectum, there was grade 2-3 internal hemorrhoids. On retroflexed view, there were large thrombosed external hemorrhoids with prolapse. Because of the diarrhea, random biopsies were taken throughout the left colon. The lumen was then decompressed and the scope was removed without incident. IMPRESSION: 1. Large thrombosed external hemorrhoids. 2. Sacral arteriovenous malformation. 3. Ascending colon arteriovenous malformations. 4. Numerous colon polyps that remain intact. 5. Left-sided diverticulosis. 6. Grade 2-3 internal hemorrhoids. 7. Large external hemorrhoids as previously noted. Prep quality was extremely poor. RECOMMENDATION: 1. Await biopsy results. 2. Please check a CEA level. 3. The CT scan of the chest and abdomen are pending. 4. Please see the EGD report for additional details. 5. Dr. Chance Briceño will return on Sunday to assume care of this patient. We will defer to him regarding the need for a repeat colonoscopy in light of the numerous polyps that were present on exam today.
[2017-02-09] MEDS: NS 1,000 ML IV SCH ×2 (04:31→11:49)
[2017-02-09] MEDS ORDERED: MEFOXIN 2 GM/NS 50 ML IV ONE ×2 (05:53→07:00)
[2017-02-09 06:39] LABS: MANUAL DIFF NEEDED? NO
[2017-02-09 06:45] LABS: BASO% 0.2 % (0.0-0.8); EOS# 0.41 X1000 (0.0-0.7); EOS% 2.5 % (0.0-10.0); HEMATOCRIT 34.7 % (42.0-52.0); HEMOGLOBIN 11.9 g/dL (14.0-18.0); IMM GRAN# 0.05 X1000 (0.0-0.04); IMM GRAN% 0.3 % (0.0-0.5); LYMPH# 3.59 X1000 (1.2-3.4); LYMPH% 22.2 % (20.5-51.1); MCH 30.6 PG (27-31); MCHC 34.3 g/dL (33-37); MCV 89.2 FL (81-99); MONO% 9.3 % (1.7-9.3); MPV 11.2 FL (7.4-10.4); NEUT% 65.5 % (42.2-75.2); PLT 292 X1000 (130-400); RBC 3.89 XMIL (4.7-6.1)
[2017-02-09] MEDS ORDERED: XYLOCAINE-MPF 2% ONE (08:01)
[2017-02-09] MEDS ORDERED: ANESTHESIA PB SET 88 IN 5742 ONE (08:01)
[2017-02-09] MEDS ORDERED: NS 1,000 ML ONE (08:02)
[2017-02-09] MEDS: LOTREL 5/10 MG PO SCH (08:38)
[2017-02-09] MEDS: NICODERM PATCH TD SCH (08:38)
[2017-02-09] MEDS: SODIUM CHLORIDE 0.9% INJ SCH ×2 (08:38→20:52)
[2017-02-09] MEDS: ZIAC 10/6.25 MG PO SCH (08:38)
[2017-02-09] MEDS: PROTONIX IV SCH ×2 (08:38→20:52)
--- NOTE | 2017-02-09 08:57 | PROGRESS NOTE ---
DATE: 02/09/2017 VITAL SIGNS: Stable with temperature 98.1 degrees, heart rate 92, respirations 16, blood pressure 156/78, O2 saturation on room air 94%. LABORATORY: The white blood count 16,000, hemoglobin 11.9, hematocrit 34.7. ASSESSMENT AND PLAN: Endoscopy yesterday revealed distal esophagitis, mass in the duodenum which was biopsied, and hemorrhoids which were the source of bleeding. Dr. Haney believes that the duodenal mass is the etiology of his lung lesion and that he probably has metastatic disease in the lung. He may in the future need a procedure done to prevent obstruction in the duodenum. Since he is had major surgery in [place], there is consideration of sending him there for additional evaluation and definitive treatment. He is to have hemorrhoid surgery today.
--- NOTE | 2017-02-09 10:10 | Diag Imaging Result Document ---
PROCEDURE NAME: THORAX/ABDOMEN/PELVIS - 02/09/2017 CT CHEST, ABDOMEN AND PELVIS WITH IV AND ORAL CONTRAST: COMPARISON: None available. FINDINGS: CHEST: There is a large heterogeneously enhancing mass involving the inferior left upper lobe that is highly consistent with neoplasm. It measures approximately 7.6 x 5.8 cm in the axial dimensions. It extends to the left hilum where there is marked left hilar lymphadenopathy. The mass appears to encase a few branches of the left mainstem bronchus. There are other shotty lymph nodes throughout the mediastinum. Aside from the primary mass, there are several other smaller secondary nodules on the left and the right. The largest nodule on the right measures up to 9.2 mm in the greatest dimension and is in the anterior right upper lobe on image 35 of series 4. The largest secondary nodule on the left abuts the fissure and is in the left lower lobe on image 64 of series 4 and measures up to 1.2 cm in the greatest dimension. These nodules are indeterminate but they are worrisome for metastatic foci. There is subsegmental atelectasis in the lung bases. Around the primary left upper lobe mass, there is ground-glass opacity suggesting surrounding pneumonitis. There is no significant pleural fluid collection and no pneumothorax. There is no evidence of metastatic disease involving the bony structures of the chest. IMPRESSION: 1. Large mass involving the left upper lobe extending to the left hilum with associated mediastinal and hilar lymphadenopathy highly consistent with neoplasm. 2. Several smaller nodules scattered throughout both lungs that are more indeterminate. However, metastatic foci cannot be excluded. ABDOMEN/PELVIS: There has been a previous cholecystectomy. There is extensive pneumobilia, which could be related to prior surgery/ampullotomy. There is a mass-like density in the region of the proximal duodenum. The duodenal wall appears thickened. It measures approximately 2.4 x 3.7 cm axially. This would be consistent with the given history of duodenal mass. The adrenal glands appear somewhat thickened. They are vaguely nodular. This probably represents adrenal hyperplasia or adrenal adenomas. Continued surveillance is recommended to exclude metastatic foci which seems less likely given the lower density. There is nonspecific thickening of the gastric wall at the fundus and part of the body of the stomach. This may be due to incomplete distention. Also consider gastritis. The pancreatic duct appears somewhat dilated. The thickened portion of the duodenum is directly adjacent to the pancreatic head. Although I suppose it could actually represent a pancreatic neoplasm, it does not appear to be centered around the pancreatic head. There are a few moderately distended loops of small bowel with air-fluid levels mainly on the right side of the abdomen. They are nonspecific and probably represent ileus. I suppose a low- grade obstruction is possible but I see no transition point. So I feel that this is less likely. Liquid stool is seen in the colon. The urinary bladder is markedly distended. No discrete bladder mass is identified. The remainder of the solid viscera of the abdomen and pelvis and the remainder of the GI tract is essentially unremarkable. IMPRESSION: 1. Mass-like thickening involving the proximal duodenum as described. Neoplasm cannot be excluded. 2. Mild dilation of the pancreatic duct which may be related to an obstructing lesion of the adjacent pancreas. 3. Pneumobilia. 4. Nonspecific moderate small bowel distention on the right with air-fluid levels. Please see above discussion. 5. Nonspecific thickening of the gastric wall at the fundus and part of the body of the stomach. 6. Nonspecific marked distention of the urinary bladder. [facility]
--- NOTE | 2017-02-09 11:13 | CONSULTATION ---
DATE OF CONSULTATION: 02/09/2017 REQUESTING PHYSICIAN: Dr. Haney. Consult concerning large hemorrhoid. HISTORY OF PRESENT ILLNESS: A 66-year-old male who had been recently discharged from [facility] who is complaining of dizziness. He was noted to have a small lung mass at that time, which by report was biopsied but no pathology at this time is available. He reported episodes of diarrhea then noticed a small amount of blood. He continued to have rectal bleeding and came to [place] and was transferred to [facility]. He continued to have dizziness and also emesis but no hematemesis. He has had previous colonoscopies without any major pathology except for some polyps and diverticulosis but no other masses. He underwent a colonoscopy Dr. Haney. He was found to have significant hemorrhoidal disease. He was also found to have a duodenal polyp. I was asked to evaluate the patient for potential hemorrhoidectomy. Patient at this point is not having any major issues. Some rectal discomfort but no major other issues reported. PAST MEDICAL HISTORY: Includes hypertension, diabetes type 2, history of chronic pancreatitis, previous ERCPs and stents. PAST SURGICAL HISTORY: 1. Includes cholecystectomy. 2. Choledochoduodenostomy. 3. Previous back surgery. 4. Previous hernia surgery. 5. Previous stent to the left leg. ALLERGIES: None. HOME MEDICATIONS: Prilosec, NovoLog, hydrochlorothiazide, amlodipine. SOCIAL: Smokes 2 packs a day of cigarettes and denies current alcohol use. FAMILY HISTORY: Reviewed with patient but noncontributory. REVIEW OF SYSTEMS: A full 10 point review of systems obtained, negative as specified in the HPI. EXAM: Vital Signs: The patient is currently afebrile. His vital signs have been stable since admission. General: No acute distress. Alert, interactive, male looks stated age. HEENT: Normocephalic, atraumatic. Pupils are round, react to light. Mucous membranes moist. Oropharynx benign. Neck: Supple. Trachea midline. Cardiovascular: Regular rate and rhythm. Lungs: Grossly clear. Abdomen: Soft, nontender, nondistended. Extremities: Moves all extremities well. Rectal Exam: Deferred at this time, but I reviewed Dr. Haney images from her colonoscopy. Large hemorrhoid noted. Skin: No signs of jaundice. Vascular: All extremities perfused. LABORATORY: White blood cell count from yesterday 16, hematocrit 38, platelet count 307,000. INR 1.26. ASSESSMENT/PLAN: A 66-year-old, male with left lung mass, hemorrhoids and duodenal polyp. 1. Multiple medical comorbidities to be managed by the hospitalist service. 2. Chest, left lung mass. At this time he has a biopsy pending from [facility]. Will need to follow up with that pathology before any kind of intervention determined. At this time, will await further information from [place]. 3. Hemorrhoids. At this time, discussed with patient hemorrhoidectomy. Patient is NPO. I will have him consented for hemorrhoidectomy. Discussed the risks, benefits, alternatives. All questions answered. 4. Duodenal polyp. At this time, may be related to his previous surgical intervention at [facility]. Will defer further management of this to Dr. Lu at [facility]. I appreciate the consult.
--- NOTE | 2017-02-09 16:51 | CONSULTATION ---
DATE OF CONSULTATION: 02/09/2017 REQUESTING PHYSICIAN: Dr. Haney. REASON FOR CONSULTATION: Duodenal mass. HISTORY OF PRESENT ILLNESS: Mr. Benedict is a 66-year-old, male, who was recently actually at [facility] for dizziness, who presented now with rectal bleeding after his discharge from the hospital. While at the [facility], he was found have a lung mass. He was admitted here due to the GI bleed. The CT of the chest, abdomen and pelvis revealed him to have a large left upper lobe mass extending to the left hilum with mediastinal and hilar lymphadenopathy that is highly consistent with neoplasm. The patient also had several smaller nodules scattered throughout both lungs that are more indeterminate. The patient has a masslike density in the region of the proximal duodenum that measured 2.4 x 3.[address] scan. Patient subsequently has undergone colonoscopy, which showed him to have large hemorrhoids or AVM's, which were likely the cause of his rectal bleeding. He did also have an EGD which showed that duodenal bulb mass. Biopsies were taken, currently pending. He had been consulted due to the high suspicion of carcinoma. PAST MEDICAL HISTORY: 1. Hypertension. 2. Diabetes mellitus type 2. 3. Chronic pancreatitis. PAST SURGICAL HISTORY: 1. Some back surgery. 2. Hernia repair. 3. Some sort of pancreatic surgery, which the patient feels that he may have had a partial removal. SOCIAL HISTORY: The patient reports that he smokes 2 packs of cigarettes per day, and he has been doing this since he was at the age of 19. So, he has about a 50-year pack history. Denies any alcohol or drug use. FAMILY HISTORY: Positive for his father having lung cancer. His father, however, of other causes. He reports no other cancer history in the family. REVIEW OF SYSTEMS: As per the HPI. All else negative and noncontributory. PHYSICAL EXAMINATION: Vital Signs: Temperature 98.3 degrees, heart rate 84, respirations 16, blood pressure 153/75, O2 saturations 94% on room air. General: male, lying in hospital bed. He is in no acute distress. HEENT/Neck: Head normocephalic, atraumatic. Eyes: Pupils equal, round, reactive. He has glasses in place. Ears, nose, throat, neck and mouth: Oral mucosa appears to be normal. Gross auditory acuity is intact. Trachea is midline. Cardiovascular: S1, S2 heard. No murmurs, gallops, rubs appreciated. Respiratory: Lungs are clear to auscultation bilaterally with normal respiratory effort. Gastrointestinal: Abdomen is soft and nondistended. Positive bowel sounds. Musculoskeletal: The patient has no obvious bony abnormalities. Extremities: Patient has no edema x4. Neurologic: Patient is alert and oriented. No focal motor deficits. LABS AND STUDIES: CT as per above. White blood cells 16.6, hemoglobin 11.9, hematocrit 34.7, platelets 292. Colonoscopy results also as per the HPI. ASSESSMENT AND PLAN: 1. Duodenal mass/lung mass. Will await the final pathology results. Further treatment plan will be made once those are obtained. 2. Gastrointestinal bleed. It appears to be better. Colonoscopy findings as per above. Dr. Haney is monitoring the patient as well. Hemoglobin looks stable. Monitor and transfuse as needed. 3. Hypertension, currently well controlled. Continue current management as per the primary team. 4. Diabetes mellitus type 2. Continue current management as per the primary care team. I want to thank you for allowing us to participate in Mr. Benedict's care while he is here at [facility]. Will continue to follow along. Dictated by FATOUMATA Corey for Sharee Martell MD
[2017-02-09] MEDS ORDERED: MARCAINE 0.25% PF/EPI 1:200,000 ONE (18:37)
[2017-02-09] MEDS ORDERED: XYLOCAINE 1% ONE (18:37)
[2017-02-09] MEDS ORDERED: MEFOXIN 2 GM/NS 50 ML ONE (18:46)
[2017-02-09] MEDS ORDERED: FENTANYL ONE (19:58)
[2017-02-09] MEDS ORDERED: DIPRIVAN 1% ONE (19:59)
[2017-02-09] MEDS: NORCO-10 PO PRN (22:26)
--- NOTE | 2017-02-09 23:02 | OPERATIVE NOTE ---
PROCEDURE DATE: 02/09/2017 PREOP DIAGNOSIS: Grade 3 thrombosed external, internal hemorrhoids the left lateral position. POSTOP DIAGNOSIS: Grade 3 thrombosed external, internal hemorrhoids the left lateral position. PROCEDURES: 1. Examination under anesthesia. 2. Single column hemorrhoidectomy of the internal, external columns of the left lateral position. SURGEON: Umair Corral MD. BUSINESS SEGMENT MANAGER: None. ANESTHESIA: General endotracheal. INTRAOPERATIVE FINDINGS: As above. COMPLICATIONS: None at time of dictation. ESTIMATED BLOOD LOSS: 10 mL. SPECIMENS REMOVED: Hemorrhoidal tissue. BRIEF HISTORY: The patient is a 66-year-old male with multiple medical problems who had previous surgery on his bottom now presenting with rectal bleeding. He had a colonoscopy done by Dr. Haney and found to have a large grade 3 thrombosed external, internal hemorrhoid in the left lateral position. Given this, felt the patient would benefit from a hemorrhoidectomy. The risks, benefits, alternatives were discussed. All questions were answered. DESCRIPTION OF PROCEDURE: After informed consent was obtained, patient brought to the operative theatre, transferred to operating table, placed supine position. General endotracheal anesthesia was then performed without complication. A formal time-out was then performed confirming patient, date, procedure. All were agreement. The patient was repositioned to prone etta-knife. We taped the gluteal fold apart. We prepped and draped this area in a sterile fashion. After the formal time-out we did a digital rectal exam, found no obvious masses. We did a pudendal nerve block which the patient tolerated well. We then inserted the Sveta Eaton anoscope and viewed all hemorrhoidal tissue. He had a prominent column in the left lateral position that was both thrombosed and protruding and it was an internal, external component. We then elevated this, placed a stitch at the top of the column and then excised the hemorrhoidal tissue and closed it with a running 3-0 chromic. We maintained hemostasis with the suture and pressure. We did local anesthetic in the area, reviewed all the remainder columns. Again no other pathology was appreciated. We placed a Gel-Foam sponge in the rectum and gave the patient more local anesthetic. The patient tolerated procedure well, was transferred back to the recovery room in stable condition.
[2017-02-10] MEDS: NS 1,000 ML IV SCH ×3 (00:01→17:53)
[2017-02-10] MEDS: NORCO-10 PO PRN ×2 (01:54→06:06)
[2017-02-10] MEDS: CARAFATE LIQUID PO SCH ×3 (04:23→14:30)
[2017-02-10] MEDS: PROTONIX IV SCH ×2 (06:06→17:53)
[2017-02-10] MEDS: SODIUM CHLORIDE 0.9% INJ SCH ×2 (06:06→17:53)
[2017-02-10] MEDS: HUMULIN R SUBQ SCH ×3 (07:45→16:48)
[2017-02-10] MEDS: LOTREL 5/10 MG PO SCH (08:31)
[2017-02-10] MEDS: ZIAC 10/6.25 MG PO SCH (08:31)
[2017-02-10] MEDS: NICODERM PATCH TD SCH (08:31)
--- NOTE | 2017-02-10 10:05 | PROGRESS NOTE ---
DATE: 02/10/2017 OBJECTIVE: Vital signs: Temperature 98.2, heart rate 96, respirations 16, blood pressure 179/78, O2 sat 94% on 2 L nasal oxygen. The patient is in moderate pain related to his hemorrhoid surgery last evening. The pain is not controlled with [place] 10. His blood pressure is elevated probably as a result of his increased pain and inability to rest. PLAN: Change [place] to Percocet 10, and add hydralazine for blood pressure. Consideration will be made concerning discharge this evening if he is improved. He will need a procedure for removal of the duodenal mass in the near future. This may be done in [place].
[2017-02-10] MEDS: PERCOCET-10 PO PRN ×2 (10:08→17:53)
[2017-02-10] MEDS ORDERED: APRESOLINE PO SCH (13:00)
[2017-02-10 14:29] VITALS: BP 168/78
[2017-02-10] MEDS ORDERED: MOVANTIK PO ONE (17:38)
[2017-02-10] MEDS ORDERED: COLACE PO SCH (21:00)
--- NOTE | 2017-02-11 08:47 | DISCHARGE SUMMARY ---
ADMISSION DATE: 02/06/2017 DISCHARGE DATE: 02/10/2017 FINAL DIAGNOSES: 1. Bright red rectal bleeding. 2. Large hemorrhoids with thrombosis. 3. 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 4. Large left pulmonary mass, probable metastatic disease. 5. Mediastinal and hilar lymphadenopathy, as well as thick and adrenal glands on CT. 6. Distal esophagitis. 7. 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 8. Diabetes. 9. Smoker. CONSULTATION: Dr. Haney and with Dr. Martell and with Dr. Corral. PROCEDURES: Hemorrhoidectomy on 02/09. EGD and colonoscopy by Dr. Haney with biopsies of the duodenal mass. HISTORY: This is the first recent [facility] admission for this 66-year-old white man who had recently been hospitalized at [facility] and had biopsy of the left lung mass. Results or pathology is pending. He presented to the emergency room with bright red rectal bleeding. He was admitted for further evaluation and treatment. INITIAL LABORATORY: Hemoglobin 12.9, hematocrit 39.2, white blood count 14,800, with 72% neutrophils. HOSPITAL COURSE: His hematocrit this morning was 33. His rectal bleeding stopped. Hemorrhoidectomy was done last evening by Dr. Corral. He has moderate pain. This was not controlled with [place] 10 and he was placed on Percocet 10 today. He has much better pain relief. Dr. Martell noted that she would plan a course of treatment once biopsy reports were received. The patient is anxious to go home this evening. Discussion had been made with Dr. Haney concerning abdominal surgery with removal of the duodenal lesions since at some point in near future it might cause obstruction. She mentioned that surgery might be best performed at [facility] by a surgeon who previously did extensive abdominal surgery on the patient. He is discharged home on usual medications plus Carafate 1 g q.i.d., Percocet 10/325 (30) 1 q.4 hours p.r.n. pain. Also hydralazine 25 mg b.i.d. and nicotine patch to use daily, 21 mg. Further definitive treatment of his cancer will be made soon and initiated by Dr. Martell or surgeon at [facility].
--- NOTE | 2017-02-12 02:34 | DISCHARGE SUMMARY ---
ADMISSION DATE: 02/06/2017 DISCHARGE DATE: 02/10/2017 ADDENDUM: Biopsy reports of his lung mass in [place] revealed non-small cell carcinoma consistent with adenocarcinoma.
[2017-02-12] MEDS ORDERED: XYLOCAINE-MPF 2% ONE (09:08)
[2017-02-12] MEDS ORDERED: ROBINUL ONE (09:08)
[2017-02-12] MEDS ORDERED: STERILE WATER INJ. ONE (09:08)
[2017-02-12] MEDS ORDERED: NEO-SYNEPHRINE ONE (09:08)
[2017-02-12] MEDS ORDERED: LR 1,000 ML ONE (09:08)
[2017-02-12] MEDS ORDERED: QUELICIN (DOSE) ONE (09:08)
== END 2017-02-10 18:42 | disposition home or self-care (01) | DRG 348 ==
LOC: ED 16:53 → EDIPHOLD 16:54 → 3N 02-07 17:24
PROVIDERS: ADMIT Family Medicine; ATTEND Family Medicine
PROC: 0DB68ZX Excision of Stomach, Via Natural or Artificial Opening Endoscopic, Diagnostic (ICD-10-PCS; 2017-02-09)
PROC: 0DBE8ZX Excision of Large Intestine, Via Natural or Artificial Opening Endoscopic, Diagnostic (ICD-10-PCS; 2017-02-09)
PROC: 06BY0ZC Excision of Hemorrhoidal Plexus, Open Approach (ICD-10-PCS; principal; 2017-02-09 18:55)
PROC: 0DB98ZX Excision of Duodenum, Via Natural or Artificial Opening Endoscopic, Diagnostic (ICD-10-PCS; 2017-02-09 18:55)
DX: K64.2 Third degree hemorrhoids (principal); K86.1 Other chronic pancreatitis; C78.02 Secondary malignant neoplasm of left lung; D62 Acute posthemorrhagic anemia; K25.9 Gastric ulcer, unspecified as acute or chronic, without hemorrhage or perforation; I10 Essential (primary) hypertension; E11.9 Type 2 diabetes mellitus without complications; J44.9 Chronic obstructive pulmonary disease, unspecified; K31.7 Polyp of stomach and duodenum; K31.9 Disease of stomach and duodenum, unspecified; K64.5 Perianal venous thrombosis; D12.5 Benign neoplasm of sigmoid colon; K57.30 Diverticulosis of large intestine without perforation or abscess without bleeding; D12.3 Benign neoplasm of transverse colon; D12.4 Benign neoplasm of descending colon; D12.2 Benign neoplasm of ascending colon; E87.6 Hypokalemia; K21.0 Gastro-esophageal reflux disease with esophagitis; R91.8 Other nonspecific abnormal finding of lung field; G89.29 Other chronic pain; M54.9 Dorsalgia, unspecified; F17.210 Nicotine dependence, cigarettes, uncomplicated; Z71.6 Tobacco abuse counseling; Z80.1 Family history of malignant neoplasm of trachea, bronchus and lung; Z95.820 Peripheral vascular angioplasty status with implants and grafts; I73.9 Peripheral vascular disease, unspecified; M19.90 Unspecified osteoarthritis, unspecified site; K55.20 Angiodysplasia of colon without hemorrhage
CPT/HCPCS: 36415; 71010; 71260; 74177; 80048; 80053; 81001; 82378; 82948; 85014; 85018; 85025; 85610; 85730; 86850; 86900; 86901; 88304; 88305; 88312; 88313; 94761; 99285; C9113; J0330; J0694; J2370; J3010; J7030; J7120; Q9967; S0164

== ENCOUNTER 2017-03-11 23:12 | Inpatient (IN) ==
[2017-03-11] MEDS ORDERED: LR 1,000 ML IV PRN (23:42)
[2017-03-11] MEDS ORDERED: PHENERGAN IV ONE (23:43)
[2017-03-11] MEDS ORDERED: SODIUM CHLORIDE 0.9% INJ ONE (23:43)
[2017-03-12 00:01] LABS: MANUAL DIFF NEEDED? NO
[2017-03-12 00:08] LABS: BASO% 0.3 % (0.0-0.8); EOS# 0.02 X1000 (0.0-0.7); EOS% 0.2 % (0.0-10.0); HEMATOCRIT 45.6 % (42.0-52.0); HEMOGLOBIN 15.4 g/dL (14.0-18.0); IMM GRAN# 0.04 X1000 (0.0-0.04); IMM GRAN% 0.3 % (0.0-0.5); LYMPH# 2.61 X1000 (1.2-3.4); LYMPH% 19.7 % (20.5-51.1); MCH 29.3 PG (27-31); MCHC 33.8 g/dL (33-37); MCV 86.9 FL (81-99); MONO# 0.33 X1000 (0.11-0.59); MONO% 2.5 % (1.7-9.3); MPV 11.2 FL (7.4-10.4); PLT 455 X1000 (130-400); RBC 5.25 XMIL (4.7-6.1)
[2017-03-12] MEDS ORDERED: LOMOTIL PO ONE (00:25)
[2017-03-12 00:30] LABS: CALCIUM 11.1 mg/dL (8.8-10.2); POTASSIUM 3.9 mmol/L (3.5-5.1); TOTAL BILIRUBIN 0.6 mg/dL (0.20-1.00); TOTAL PROTEIN 8.9 g/dL (6.3-8.3)
[2017-03-12] MEDS ORDERED: HUMULIN R SUBQ ONE (01:16)
[2017-03-12] MEDS ORDERED: HUMULIN R (PARKWAY) ONE (01:32)
[2017-03-12] MEDS ORDERED: ZOFRAN IV PRN (02:06)
[2017-03-12] MEDS ORDERED: NS 1,000 ML IV SCH ×2 (02:06→04:43)
[2017-03-12] MEDS ORDERED: MORPHINE IV PRN (02:06)
[2017-03-12] MEDS ORDERED: LR 1,000 ML IV PRN (02:16)
[2017-03-12] MEDS ORDERED: NS 1,000 ML IV ONE (02:16)
--- NOTE | 2017-03-12 02:21 | PROVIDER DOCUMENTATION ---
This chart was entered by Ulisses Vargas Scribe, acting as scribe for Yordy Smith MD. HPI-General Adult - General Chief Complaint: Weakness Stated Complaint: V/D/N HEADACHE Time Seen by Provider: 03/11/17 23:42 Source: patient Allergies/Adverse Reactions: Patient Allergies Allergy/AdvReac Type Severity Reaction Status Date / Time No Known Allergies Allergy Verified 02/06/17 18:36 Home Medications: Home Medication List Medication Instructions Recorded Confirmed Last Taken Type Amlodipine Besylate/Benazepril 1 each PO DAILY 01/20/14 02/06/17 02/06/17 09:00 History [Lotrel 10/20 mg Capsule] Bisoprolol/Hctz [Ziac 10/6.25 mg] 1 each PO DAILY 01/20/14 02/06/17 02/06/17 09: 00 History Insuln Asp Prt/Aspart [Novolog Mix 20 unit SUBQ QPM 01/20/14 02/06/17 02/06/17 09:00 History 70/30] Omeprazole [Prilosec] 20 mg PO DAILY 01/20/14 02/06/17 01/22/14 04:30 History AMLODIPINE/BENAZEpril [Lotrel 5/10 2 each PO DAILY #0 capsule 02/10/17 Unknown Rx mg] Bisoprolol/Hctz [Ziac 10/6.25 mg] 1 each PO DAILY #0 tablet 02/10/17 Unknown Rx Docusate Sodium [Colace] 200 mg PO BID #30 capsule 02/10/17 Unknown Rx Hydralazine [Apresoline] 25 mg PO Q8HR #60 tablet 02/10/17 Unknown Rx Nicotine Patch [Nicoderm Patch] 21 mg TD DAILY #14 patch.td24 02/10/17 Unknown Rx Oxycodone/APAP 10 mg/325 mg 1 each PO Q4H PRN PRN #30 tablet 02/10/17 Unknown Rx [Percocet-10] Sucralfate [Carafate Liquid] 1 gm PO Q6HR #60 udc 02/10/17 Unknown Rx - History of Present Illness -Gen Adult Nature of Presenting Problems: PT C/O N/V/D AND WEAKNESS ONSET LAST NIGHT PT HAS HX OF LUNG CA WIT METS TO THE BRAIN AND COLON . Location of Pain/Injury: reports: none Pain Radiation: reports: no radiation Quality of Pain: reports: none, aching Onset/Duration: reports: 24 hours ago Timing: reports: still present Context/Activities at Onset: reports: none Modifying Factors: worse with: coughing, movement, palpation, urinating Associated Symptoms: reports: diarrhea, nausea, vomiting, weakness. denies: back/neck pain, chest pain, cough, fever/chills, shortness of breath Similar Symptoms Previously?: No Recently seen or treated by another doctor?: No Review of Systems - Adult - REVIEW OF SYSTEMS - ADULT Constitutional: denies: chills, fever, fatique Eyes: denies: discharge, decreased vision, double vision Ears, Nose, Mouth & Throat: denies: ear pain, loose teeth, throat swelling Cardiovascular: denies: chest pain, irregular heart rate, palpitations Respiratory: denies: cough, shortness of breath, wheezing Gastrointestinal: reports: abdominal pain, diarrhea, nausea, vomiting Genitourinary: denies: dysuria, flank pain, hematuria Musculoskeletal: reports: joint pain, muscle aches. denies: back pain Integumentary: denies: hives, itching, rash Hematologic/Lymphatic: denies: blood clots, prolonged bleeding, swollen lymph nodes, transfusions All Other Systems: Reviewed and Negative Past History - Adult - PAST MEDICAL HISTORY-ADULT Review of Records: reports: Old Records Reviewed, Nursing Assessment Review, Medications Reviewed, Social history reviewed & non-contributory. Major Childhood Illnesses: reports: denies history. denies: Pneumococcal Disease Cardiovascular: reports: HTN, heart valve problem Respiratory: reports: COPD, other (lung mass unspecified ) Gastrointestinal: reports: liver disease, pancreatitis Obstetrical/Gynecological: reports: denies history Genitourinary: reports: denies history Musculoskeletal: reports: denies history Neurological: reports: denies history Endocrine/Immune: reports: denies history Other Conditions: reports: denies history - PRIOR SURGERIES/PROCEDURES Surgical/Procedure History: reports: reviewed, not pertinent - PRIOR HOSPITALIZATIONS Prior Hospitalizations: reports: for other non-related - IMMUNIZATION STATUS Childhood Immunizations: See Nurse Assessment Flu Vaccine: See Nurse Assessment - FAMILY HISTORY Family History: reviewed, not pertinent - SOCIAL HISTORY Smoking: quit less than 1 year Substance Use: none/never Alcohol Use Frequency: occasionally Number of drinks per typical drinking period:: 3-4 drinks Living Situation: family Physical Exam-General - PHYSICAL EXAM-ADULT Initial Vital Signs Reviewed: Yes - CONSTITUTIONAL General Appearance: appears well, alert, no apparent distress - EYES Eyes: PERRL/EOMI, fundi clear, no AV nicking. negative: sunken eyes - HEAD, EARS, NOSE, MOUTH & THROAT HENMT: normocephalic/atraumatic, moist mucous membranes, normal ENT inspection, TMs normal, pharynx normal - NECK Neck: non-tender, full range of motion, supple, normal inspection - RESPIRATORY Respiratory: chest non-tender, lungs clear, normal breath sounds, no pleuratic chest pain, no respiratory distress, no accessory muscle use - CARDIOVASCULAR Cardiovascular: normal peripheral pulses, regular rate, rhythm, no edema, no gallop, no JVD, no murmur - LYMPHATIC Lymphatic: no adenopathy - MUSCULOSKELETAL Back Exam: normal inspection, no CVA tenderness, no vertebral tenderness Extremity: normal range of motion, non-tender, normal gait, normal inspection, no pedal edema, no calf tenderness, normal capillary refill - SKIN Integumentary: normal color, normal turgor, warm/dry - PSYCHIATRIC Psych/Mental Status: normal mood/affect, normal thought content, normal thought process, oriented x 3 Progress - PLAN OF CARE/RESULTS Progress/Plan/Lab Results: Vital Signs - 8 hr 03/11/17 23:25 Temperature 97.9 F Pulse Rate 121 H Respiratory Rate 20 Blood Pressure 086/052 O2 Sat by Pulse Oximetry 94 L Laboratory Results - last 24 hr 03/11/17 03/11/17 23:45 23:45 WBC 13.24 H RBC 5.25 Hgb 15.4 Hct 45.6 MCV 86.9 MCH 29.3 MCHC 33.8 RDW Std Deviation 13.5 Plt Count 455 H MPV 11.2 H Immature Gran % (Auto) 0.3 Neut % (Auto) 77.0 H Lymph % (Auto) 19.7 L [place] % (Auto) 2.5 Eos % (Auto) 0.2 Baso % (Auto) 0.3 Immature Gran # (Auto) 0.04 Neut # (Auto) 10.20 H Lymph # (Auto) 2.61 [place] # (Auto) 0.33 Eos # (Auto) 0.02 Baso # (Auto) 0.04 Sodium 137 Potassium 3.9 Chloride 82 L Carbon Dioxide 18 L Anion Gap 37 BUN 52 H Creatinine 3.3 H Estimated GFR/1.73 m2 19 BUN/Creatinine Ratio 16 Glucose 496 H* Calculated Osmolality 310 Calcium 11.1 H Total Bilirubin 0.60 AST 20 ALT 31 Alkaline Phosphatase 234 H Total Protein 8.9 H Albumin 5.0 Globulin 4.0 Albumin/Globulin Ratio 1.0 Orders Category Date Time Status CBC WITH DIFF [HEME] Stat Lab 03/11/17 23:45 Completed COMPREHENSIVE METABOLIC PANEL [CHEM] Stat Lab 03/11/17 23:45 Completed Diphenoxylate/Atropine [Lomotil] Med 03/12/17 00:25 Discontinued 2 each PO NOW ONE Lactated Ringers Inj [Lr] 1,000 ml Med 03/11/17 23:42 Active IV 500 mls/hr Promethazine [Phenergan] Med 03/11/17 23:43 Discontinued 25 mg IV NOW ONE Sodium Chloride 0.9% Med 03/11/17 23:43 Discontinued 10 ml INJ NOW ONE Result Diagrams: 03/11/17 23:45 03/11/17 23:45 Departure - Departure Time of Disposition Decision: 02:00 DIAGNOSIS: Vomiting and diarrhea, Dehydration, severe, Poorly controlled diabetes mellitus Lung cancer, primary, with metastasis from lung to other site Qualifiers: Laterality: unspecified laterality Qualified Code(s): C34.90 - Malignant neoplasm of unspecified part of unspecified bronchus or lung Disposition: ADMITTED INPATIENT 09 Certified Medical Emergency: Emergent Condition: Serious Referrals and Follow-Ups: None,PCP [Primary Care Provider] - This chart was documented by the indicated scribe, (Ulisses Vargas Scribe) and accurately reflects the services I performed and decisions made by me, Yordy Smith MD, as attested by the provider's signature.
[2017-03-12] MEDS ORDERED: ZOFRAN IV ONE (02:58)
[2017-03-12] MEDS: MORPHINE IV PRN ×4 (03:17→22:58)
[2017-03-12] MEDS ORDERED: NS 250 ML ONE (04:50)
[2017-03-12] MEDS ORDERED: NEO-SYNEPHRINE ONE (04:57)
[2017-03-12] MEDS ORDERED: NEO-SYNEPHRINE IV ONE (05:00)
[2017-03-12] MEDS: HUMULIN R SUBQ SCH ×2 (06:22→12:49)
[2017-03-12] MEDS ORDERED: HUMULIN R DOSE (PARKWAY) ONE ×2 (06:28→12:44)
[2017-03-12 06:45] LABS: CALCIUM 9.4 mg/dL (8.8-10.2); POTASSIUM 3.6 mmol/L (3.5-5.1)
[2017-03-12] MEDS ORDERED: HUMULIN R SUBQ SCH (07:00)
--- NOTE | 2017-03-12 08:03 | HISTORY AND PHYSICAL ---
CHIEF COMPLAINT: Extreme weakness, vomiting, and diarrhea. PRESENT ILLNESS: This is one of several [facility] admissions for this 66-year-old white man with known duodenal mass, pulmonary metastases, adenocarcinoma, hilar adenopathy, and possible liver mets, who started having vomiting and diarrhea last night and presented to the emergency room. His blood pressure was low and he was given a couple of liters of lactated Ringer's. White blood count was 13,200. Blood sugar was 486. After the 2 L of fluid his blood pressure continued to be in the 70s and 80s systolic. He was placed in ICU and placed on Levophed. PAST MEDICAL HISTORY: Hospitalized at [facility] 02/06 through 02/10 with final diagnosis of duodenal mass biopsied by Dr. Haney on the EGD. He had pulmonary biopsy in [place] during a recent hospitalization which was consistent with adenocarcinoma. There is a history of pancreatitis on several occasions and surgery for a pseudocyst several years ago. PRESENT MEDICATIONS: Amlodipine/benazepril 10/20 one daily, bisoprolol 10/6.25 one daily, docusate sodium 100 mg b.i.d., hydralazine 25 mg t.i.d., nicotine patch 21 mg daily, NovoLog 70/30 20 units q.p.m., and omeprazole 20 mg daily. ALLERGIES: None known. REVIEW OF SYSTEMS: No hematemesis or melena. He has had several episodes of diarrhea since last evening. After admission he had one episode of emesis which was greenish in color. FAMILY HISTORY: Unremarkable. SOCIAL HISTORY: He is a past smoker. He denies alcohol usage. He is single but has a live-in girlfriend. PHYSICAL EXAMINATION: VITAL SIGNS: Temperature 98.9 degrees, heart rate 112, respirations 28, blood pressure 86/74, O2 saturation on 2 L nasal oxygen 95%. Weight 136 pounds 9 ounces. Height 5 feet 6 inches. GENERAL: Patient is a well-developed, well-nourished, white man, weak, but in no apparent distress. He is dyspneic. LUNGS: Clear. HEENT: Pharynx benign with no erythema or exudate. NECK: Supple with no mass or lymphadenopathy. HEART: Regular in rate and rhythm with no murmur, rub, or gallop. ABDOMEN: Soft with mild generalized tenderness but no palpable mass. EXTREMITIES: No cyanosis, clubbing, or edema. RECTAL: Deferred. IMPRESSIONS: 1. Gastroenteritis. 2. Dehydration. 3. 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 4. Diabetes, uncontrolled. PLAN: Admit to ICU and place on Levophed drip. He has been followed by Dr. Martell, oncologist, who recommends chemotherapy soon. cc: Walker Ly MD
[2017-03-12] MEDS: ZOFRAN IV PRN ×2 (10:01→17:12)
[2017-03-12 15:26] LABS: CALCIUM 7.1 mg/dL (8.8-10.2); POTASSIUM 3.4 mmol/L (3.5-5.1)
[2017-03-12] MEDS ORDERED: 1/2 NS 1,000 ML IV ONE (16:53)
[2017-03-12] MEDS: NICODERM PATCH TD SCH (17:12)
[2017-03-12] MEDS: HUMULIN R DOSE (PARKWAY) SUBQ SCH ×2 (17:13→20:45)
[2017-03-12] MEDS: POTASSIUM CHLORIDE 10 MEQ in 1/2 NS 1,000 ML IV SCH (18:30)
[2017-03-12 20:26] LABS: OCCULT BLOOD 1 POSITIVE (NEGATIVE)
[2017-03-12 20:42] LABS: MANUAL DIFF NEEDED? NO
[2017-03-12 20:59] LABS: BASO% 0.2 % (0.0-0.8); EOS# 0.01 X1000 (0.0-0.7); EOS% 0.1 % (0.0-10.0); HEMOGLOBIN 14.3 g/dL (14.0-18.0); IMM GRAN# 0.07 X1000 (0.0-0.04); IMM GRAN% 0.6 % (0.0-0.5); LYMPH# 1.77 X1000 (1.2-3.4); LYMPH% 14.2 % (20.5-51.1); MCH 29.4 PG (27-31); MCV 86.2 FL (81-99); MONO# 0.99 X1000 (0.11-0.59); MPV 11.3 FL (7.4-10.4); NEUT% 76.9 % (42.2-75.2); PLT 376 X1000 (130-400); RBC 4.87 XMIL (4.7-6.1)
[2017-03-12] MEDS ORDERED: SODIUM CHLORIDE 0.9% INJ SCH (21:30)
[2017-03-12] MEDS: PROTONIX IV SCH (22:05)
[2017-03-13] MEDS: POTASSIUM CHLORIDE 10 MEQ in 1/2 NS 1,000 ML IV SCH ×2 (00:30→06:18)
[2017-03-13] MEDS: ZOFRAN IV PRN (01:04)
[2017-03-13] MEDS: MORPHINE IV PRN ×2 (01:04→03:25)
[2017-03-13] MEDS: NEO-SYNEPHRINE 50 MG in NS 250 ML IV SCH ×2 (01:20→15:10)
[2017-03-13] MEDS ORDERED: XYLOCAINE 2% JELLY UROJECT ONE (03:17)
[2017-03-13 04:08] LABS: BE -6.8 mmoll (-3.0-3.0); BLOOD TYPE ARTERIAL; DRAW SITE R BRACHIAL; METHB 1.3 % (0.0-1.5); O2(CT) 18.6 mL/dL (15.0-23.0); PCO2(98.6) 36 mmHg (35-45); PO2(98.6) 75 mmHg (60-100); SAMPLE BLOOD; SAO2 94.9 % (95.0-100.0); THB 14.4 g/dL (11.5-17.4); pH(98.6) 7.32 (7.35-7.45)
[2017-03-13 04:10] LABS: ALLEN TEST NO; MODALITY CANNULA
[2017-03-13 05:02] LABS: POTASSIUM 3.3 mmol/L (3.5-5.1)
[2017-03-13 05:06] LABS: BASO% 0.2 % (0.0-0.8); HEMATOCRIT 38.9 % (42.0-52.0); HEMOGLOBIN 13.4 g/dL (14.0-18.0); IMM GRAN# 0.18 X1000 (0.0-0.04); LYMPH# 1.76 X1000 (1.2-3.4); MANUAL DIFF NEEDED? YES; MCH 29.3 PG (27-31); MCHC 34.4 g/dL (33-37); MCV 85.1 FL (81-99); MONO# 1.61 X1000 (0.11-0.59); MONO% 9.1 % (1.7-9.3); MPV 11.8 FL (7.4-10.4); NEUT% 79.7 % (42.2-75.2); PLT 358 X1000 (130-400); RBC 4.57 XMIL (4.7-6.1)
[2017-03-13 05:08] LABS: CALCIUM 5.6 mg/dL (8.8-10.2)
[2017-03-13] MEDS ORDERED: CALCIUM GLUCONATE IV PUSH ONE (05:22)
[2017-03-13 05:28] LABS: BANDS 18 % (0-1); EOS 2 % (1-10); LYMPHS 14 % (21-51); MONO 6 % (1-9)
[2017-03-13 05:29] LABS: BASO 3 % (0-1); METAMYELOCYTES 3 %
[2017-03-13] MEDS: HUMULIN R DOSE (PARKWAY) SUBQ SCH ×4 (06:26→21:42)
[2017-03-13] MEDS ORDERED: ZOSYN 3.375 GM/NS 3.375 GM/50 ML IVPB IV SCH (08:15)
[2017-03-13] MEDS ORDERED: 1/2 NS 1,000 ML IV ONE (08:16)
--- NOTE | 2017-03-13 08:23 | Diag Imaging Result Document ---
PROCEDURE NAME: HEAD W/O CONTRAST - 03/13/[address] SCAN OF THE BRAIN: INDICATION: Dizziness. History of metastatic lung cancer. FINDINGS: There is mild cerebral atrophy. There are no extraaxial collections. There is no evidence for acute infarct or hemorrhage. No hydrocephalus, midline shift, or mass effect. 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 If clinically indicated, MRI could be obtained as a more sensitive evaluation in this patient with known metastatic disease. IMPRESSION: No acute abnormalities. MRI could be considered for further evaluation, as desired clinically.
[2017-03-13] MEDS: NICODERM PATCH TD SCH (08:52)
[2017-03-13] MEDS ORDERED: ATIVAN ONE (09:04)
[2017-03-13] MEDS ORDERED: NS 1,000 ML ONE ×2 (09:09→09:27)
[2017-03-13] MEDS ORDERED: VERSED ONE (09:09)
[2017-03-13] MEDS ORDERED: CARDIZEM IV ONE (09:18)
[2017-03-13] MEDS ORDERED: CARDIZEM 100 MG/NS 100 MG/100 ML IVPB ONE (09:25)
[2017-03-13] MEDS: LANOXIN ONE ×2 (09:36→10:03)
[2017-03-13] MEDS ORDERED: DILANTIN IV ONE ×2 (09:42→10:00)
--- NOTE | 2017-03-13 09:44 | Diag Imaging Result Document ---
PROCEDURE NAME: CHEST-PORTABLE - 03/13/2017 CHEST SINGLE VIEW: INDICATION: Tube placement. FINDINGS: An endotracheal tube has been placed and appears to be in appropriate position. Dense left upper lobe opacification has decreased in size. Right lobe remains clear. Heart size remains within normal limits. No effusion or pneumothorax is identified. IMPRESSION: Satisfactory placement endotracheal tube. Decrease in size of left upper lobe mass.
[2017-03-13 09:50] LABS: BE -28.8 mmoll (-3.0-3.0); BLOOD TYPE ARTERIAL; METHB 1.1 % (0.0-1.5); O2(CT) 19.4 mL/dL (15.0-23.0); PCO2(98.6) 28 mmHg (35-45); PO2(98.6) 400 mmHg (60-100); SAMPLE BLOOD; SAO2 100.6 % (95.0-100.0); SRATE 16 BPM; THB 13.3 g/dL (11.5-17.4); TVOL 600 mL
[2017-03-13 09:51] LABS: HEMATOCRIT 41.9 % (42.0-52.0); HEMOGLOBIN 13.4 g/dL (14.0-18.0); MCH 28.6 PG (27-31); MCV 89.5 FL (81-99); MPV 11.5 FL (7.4-10.4); RBC 4.68 XMIL (4.7-6.1)
[2017-03-13 09:58] LABS: pH(98.6) 6.83 (7.35-7.45)
[2017-03-13 09:59] LABS: ALLEN TEST YES; DRAW SITE R RADIAL; MODALITY VENTILATOR
[2017-03-13] MEDS ORDERED: SODIUM BICARBONATE 8.4% ONE (10:00)
[2017-03-13] MEDS ORDERED: NS IV ONE (10:00)
[2017-03-13] MEDS ORDERED: CARDIZEM 100 MG/NS 100 MG/100 ML IVPB IV SCH (10:00)
[2017-03-13] MEDS ORDERED: SODIUM BICARBONATE 8.4% 150 MEQ in D5W 1,000 ML IV SCH (10:02)
[2017-03-13] MEDS ORDERED: SODIUM BICARBONATE 8.4% IV PUSH ONE (10:05)
[2017-03-13 10:10] LABS: AGAP 46; ALBUMIN 3.5 g/dL (3.5-5.0); BUN 89 mg/dL (8-22); CHLORIDE 83 mmol/L (98-107); COSMO 310; POTASSIUM 4.1 mmol/L (3.5-5.1); SODIUM 138 mmol/L (136-145); TCO2 8 mmol/L (25-35); TOTAL PROTEIN 6.9 g/dL (6.3-8.3)
[2017-03-13 10:11] LABS: ALKALINE PHOSPHATASE 138 U/L (32-122); GOT 283 U/L (10-34); GPT 189 U/L (10-44)
[2017-03-13 10:13] LABS: CALCIUM 6.5 mg/dL (8.8-10.2); MAGNESIUM 0.8 mg/dL (1.5-2.7)
--- NOTE | 2017-03-13 10:42 | EKG Report ---
Test Performed on : 03/13/2017 09:15:21 AM Test Reason : tachycardia Blood Pressure : / mmHG Vent. Rate : 193 BPM Atrial Rate : 174 BPM P-R Int : 000 ms QRS Dur : 084 ms QT Int : 224 ms P-R-T Axes : 000 099 254 degrees QTc Int : 401 ms Atrial fibrillation. with rapid ventricular response. Rightward axis Marked ST abnormality, possible inferolateral subendocardial injury Abnormal ECG When compared with ECG of 13-MAR-2017 07:26, (Unconfirmed) Significant changes have occurred Confirmed by Jaren Jacome MD ([id number]) on 03/21/2017 11:12:30 PM
--- NOTE | 2017-03-13 10:42 | EKG Report ---
Test Performed on : 03/13/2017 07:26:31 AM Test Reason : Heart rate Blood Pressure : / mmHG Vent. Rate : 110 BPM Atrial Rate : 110 BPM P-R Int : 124 ms QRS Dur : 074 ms QT Int : 364 ms P-R-T Axes : 077 099 025 degrees QTc Int : 492 ms Sinus tachycardia. with premature atrial complexes. Rightward axis ST \T\ T wave abnormality, consider anterolateral ischemia Abnormal ECG When compared with ECG of 20-JAN-2014 09:36, premature atrial complexes. are now present T wave inversion now evident in Inferior leads Inverted T waves have replaced nonspecific T wave abnormality in Anterior leads QT has lengthened Confirmed by Jaren Jacome MD ([id number]) on 03/21/2017 11:11:47 PM
--- NOTE | 2017-03-13 10:45 | EKG Report ---
Test Performed on : 03/13/2017 09:20:54 AM Test Reason : A-FIB Blood Pressure : / mmHG Vent. Rate : 174 BPM Atrial Rate : 312 BPM P-R Int : 000 ms QRS Dur : 104 ms QT Int : 318 ms P-R-T Axes : 000 097 104 degrees QTc Int : 541 ms with variable AV block. with premature ventricular or aberrantly conducted complexes. afib Rightward axis Septal infarct , age undetermined Marked ST abnormality, possible lateral subendocardial injury Abnormal ECG When compared with ECG of 13-MAR-2017 09:15, (Unconfirmed) Atrial flutter. has replaced Atrial fibrillation. ST no longer depressed in Inferior leads ST no longer depressed in Anterior leads T wave inversion now evident in Anterior leads Confirmed by Jaren Jacome MD ([id number]) on 03/21/2017 11:13:27 PM
--- NOTE | 2017-03-13 10:46 | EKG Report ---
Test Performed on : 03/13/2017 09:21:35 AM Test Reason : AFIB/RVR Blood Pressure : / mmHG Vent. Rate : 158 BPM Atrial Rate : 316 BPM P-R Int : 000 ms QRS Dur : 102 ms QT Int : 318 ms P-R-T Axes : 000 098 104 degrees QTc Int : 515 ms narrow supraventricular tachycardia Rightward axis ST \T\ T wave abnormality, consider inferolateral ischemia Abnormal ECG When compared with ECG of 13-MAR-2017 09:20, (Unconfirmed) No significant change was found Confirmed by Jaren Jacome MD ([id number]) on 03/21/2017 11:15:48 PM
[2017-03-13] MEDS ORDERED: MAGNESIUM SULFATE 1 GM/D5W 1 GM/100 ML IVPB IV ONE ×2 (10:56→20:00)
--- NOTE | 2017-03-13 11:12 | PROGRESS NOTE ---
DATE: 03/13/2017 VITAL SIGNS: Temperature 98.0 degrees, heart rate 114, respirations 22, blood pressure 98/66, and O2 saturation on Ventimask 96%. LABORATORY: Hemoglobin 13.4, hematocrit 38.9, white blood count 17,600 with 80% neutrophils. Sodium 136, potassium 3.3, chloride 86, CO2 of 16, BUN 85, creatinine 5.3, calcium 5.6. ASSESSMENT: Despite hydration he continues to make no urine, and BUN and creatinine are rising. He had a small amount of mucus and blood in his stool this morning. There is history of duodenal mass. Chest is clear. Abdomen is soft and most of the abdominal pain has resolved. His nausea is better. PLAN: For p.o. clear liquids, give another bolus of half normal saline, add Zosyn, and consult Dr. Joya for renal failure. There was question whether the Oak[place] was correctly in place, but bladder scan revealed only 34 mL. Blood gases revealed pH 7.32, pCO2 of 36, PO2 of 75, lactate 3.8 on 3L nasal oxygen. There is possibility of sepsis, but source is uncertain. cc: Walker Ly MD
[2017-03-13] MEDS: DIPRIVAN 1% 1,000 MG/100 ML BOTTLE IV SCH ×2 (11:22→15:14)
[2017-03-13 12:18] LABS: BE -22.5 mmoll (-3.0-3.0); BLOOD TYPE ARTERIAL; DRAW SITE R RADIAL; O2(CT) 16.5 mL/dL (15.0-23.0); PCO2(98.6) 22 mmHg (35-45); PO2(98.6) 168 mmHg (60-100); SAMPLE BLOOD; SAO2 99.6 % (95.0-100.0); SRATE 16 BPM; THB 11.8 g/dL (11.5-17.4); TVOL 600 mL
[2017-03-13 12:26] LABS: pH(98.6) 7.06 (7.35-7.45)
[2017-03-13 12:27] LABS: ALLEN TEST YES; MODALITY VENTILATOR
[2017-03-13] MEDS ORDERED: SODIUM BICARBONATE 8.4% IV ONE (12:30)
[2017-03-13] MEDS: POTASSIUM CHLORIDE 20 MEQ/SWI 20 MEQ/100 ML IVPB IV SCH ×2 (12:37→15:03)
[2017-03-13 14:50] LABS: BE -17.3 mmoll (-3.0-3.0); BLOOD TYPE ARTERIAL; DRAW SITE R RADIAL; METHB 1.3 % (0.0-1.5); O2(CT) 16.7 mL/dL (15.0-23.0); PCO2(98.6) 24 mmHg (35-45); PO2(98.6) 168 mmHg (60-100); SAMPLE BLOOD; SAO2 99.5 % (95.0-100.0); SRATE 16 BPM; TVOL 600 mL
[2017-03-13 14:56] LABS: pH(98.6) 7.19 (7.35-7.45)
[2017-03-13 14:59] LABS: ALLEN TEST YES; MODALITY VENTILATOR
[2017-03-13] MEDS ORDERED: VANCOMYCIN 1 GM/NS 1 GM/250 ML IVPB IV SCH ×2 (15:00→20:00)
[2017-03-13] MEDS ORDERED: VANCOMYCIN IV PER PHARMACY MISC SCH (15:00)
--- NOTE | 2017-03-13 16:07 | Diag Imaging Result Document ---
PROCEDURE NAME: US RENAL 2 (RETROPER) COMPLETE - 03/13/2017 RENAL PORTABLE ULTRASOUND: INDICATION: Decreased renal function. FINDINGS: The kidneys appear normal in size and echotexture. There is no hydronephrosis. No focal renal masses are identified. The bladder and [place] catheter are not visualized. IMPRESSION: No hydronephrosis. Bladder/[place] catheter are not visualized.
--- NOTE | 2017-03-13 17:07 | PROGRESS NOTE ---
DATE: 03/13/2017 VITAL SIGNS: Temperature 98, heart rate 96, respiration 24, blood pressure 104/69. Currently on a ventilator with rate of 16. FiO2 50. Tidal volume 600. Blood gases: PH 7.19, pCO2 of 24, pO2 of 168, lactate 10.3. PH on initial intubation was 6.83 and lactate 16.6. He was intubated following a seizure. There is no history of seizures, but patient had a grand mal seizure followed by hypoxia and apnea. Lab this afternoon other than the blood gases are pending. Discussion has been made several times with family and the patient has been seen by Dr. Joya. PLAN: Stabilize this evening and overnight with probable transfer to [facility] ICU tomorrow to have access of more specialists and procedures if necessary. cc: Walker Ly MD
[2017-03-13 17:36] LABS: POTASSIUM 4.8 mmol/L (3.5-5.1)
--- NOTE | 2017-03-13 17:46 | CONSULTATION ---
DATE OF CONSULTATION: 03/13/2017 REASON FOR CONSULTATION: Assistance with management. Call directly by Dr. Ly. HISTORY OF PRESENT ILLNESS: Mr. Benedict is a 66-year-old white male with adenocarcinoma with multiple pulmonary masses. He also has possible liver masses and a duodenal mass. He had his 1st treatment with chemotherapy earlier last week. He began being ill on approximately with severe anorexia, weakness, fatigue, chills, fevers, etc. He was markedly weak and prostrated at home. He was unwilling to come to the hospital despite his 's urgings until Sunday. His initial evaluation included broad laboratory data and physical exam. His emergency room findings suggested that he was possibly septic with a heart rate of 121 and blood pressure of 86/52. He was treated with aggressive volume resuscitation, empiric broad-spectrum antibiotics, and admitted to the intensive care unit. Since that time, his blood pressure has remained somewhat low but he has been relatively stable, awake, and alert until this morning when he had seizure activity that began as nystagmus and generalized. He subsequently required intubation and mechanical ventilation. He has had essentially no urine output since that time. A CT of the head did not demonstrate any obvious abnormalities. He has been treated again with broad-spectrum antibiotics as well as volume resuscitation such that he is about 5 L positive at this point. Despite this, urine output has been negligible. PAST MEDICAL HISTORY: As above. He also has history of diabetes, hypertension, metastatic adenocarcinoma. CURRENT MEDICATIONS: Include Zosyn, sodium bicarbonate, phenytoin, phenylephrine, ondansetron, magnesium sulfate, insulin, diltiazem, propofol, pantoprazole, ondansetron, morphine. ALLERGIES: None. SOCIAL HISTORY: He is and lives with his who is at the bedside. FAMILY HISTORY: Otherwise not obtainable except as listed in the chart. REVIEW OF SYSTEMS: Otherwise not obtainable except as listed in the chart. PHYSICAL EXAMINATION: Vital Signs: Blood pressure 98/66, heart rate 114, respirations 22, afebrile. General: He is a middle-aged man, sedated on the ventilator, unresponsive. Skin: Somewhat ashen, dry. HEENT: Conjunctivae are pink. Pupils are approximately 2 mm and symmetrical. Oropharynx is clear. Neck: Neck veins are not visible. Trachea is midline. Heart: Regular and tachycardic with a gallop. Lungs: Have equal breath sounds with a few scattered crackles. Abdomen: Soft, nontender. There is a right upper quadrant scar that is well healed. Bowel sounds not appreciated. No organomegaly or masses. Extremities: Have no edema, clubbing, or cyanosis. LABORATORY DATA: Hemoglobin 13.4. Sodium 138, potassium 4.1, chloride 83, bicarbonate 8, BUN 89, creatinine 6.0. IMPRESSIONS: 1. Acute kidney injury. Presumably acute tubular necrosis secondary to shock and sepsis. He has no acute indications for dialysis but likely will meet criteria by tomorrow. Certainly, his blood pressure is currently too low to sustain dialysis. He will require SLED if dialysis is indicated. I have counseled his that the provision of dialysis will require moving him to [facility], [place]. 2. Hypotension. I agree with aggressive volume resuscitation using bicarbonate containing solution. If blood pressure remains low then the addition of norepinephrine is appropriate. 3. Metabolic acidosis. Somewhat curious. His lactate was only 3 this morning at the time that his anion gap was over 35. His acetone is negative. No reason to suspect an ingestion. We will complete his evaluation with a repeat acetone, salicylate level, measured osmolal gap. His lactate is higher following his seizure but remains elevated at this time at 10.0. 4. Hypomagnesemia. This is being addressed by the primary team. 5. Sepsis: I adjusted his Zosyn dose based on his renal dysfunction. cc: MD Walker Tate MD
[2017-03-13 18:06] LABS: ALBUMIN 3.5 g/dL (3.5-5.0); BUN 91 mg/dL (8-22); CHLORIDE 84 mmol/L (98-107); COSMO 312; POTASSIUM 4.6 mmol/L (3.5-5.1); SODIUM 139 mmol/L (136-145); TCO2 4 mmol/L (25-35)
[2017-03-13 18:07] LABS: AGAP 50; CALCIUM 6.8 mg/dL (8.8-10.2)
[2017-03-13] MEDS ORDERED: 1/2 NS 500 ML IV ONE (19:04)
[2017-03-13] MEDS: ZOSYN 2.25 GM/NS 2.25 GM/50 ML IVPB IV SCH (19:09)
[2017-03-13] MEDS: DILANTIN IV SCH (20:06)
[2017-03-13] MEDS: NEO-SYNEPHRINE 100 MG in NS 500 ML IV SCH ×2 (20:14→22:28)
[2017-03-13] MEDS: PROTONIX IV SCH (21:13)
[2017-03-14] MEDS: ZOSYN 2.25 GM/NS 2.25 GM/50 ML IVPB IV SCH (01:28)
[2017-03-14] MEDS: DILANTIN IV SCH (04:18)
[2017-03-14 04:19] LABS: BE -24.3 mmoll (-3.0-3.0); BLOOD TYPE ARTERIAL; DRAW SITE R BRACHIAL; METHB 2.3 % (0.0-1.5); PCO2(98.6) 22 mmHg (35-45); PO2(98.6) 158 mmHg (60-100); SAMPLE BLOOD; SAO2 98.5 % (95.0-100.0); SRATE 16 BPM; TVOL 600 mL
[2017-03-14 04:24] LABS: ALLEN TEST NO; MODALITY VENTILATOR
[2017-03-14] MEDS ORDERED: SODIUM BICARBONATE 8.4% IV PUSH ONE (04:38)
--- NOTE | 2017-03-14 04:58 | EKG Report ---
Test Performed on : 03/14/2017 03:50:15 AM Test Reason : RHYTHM CHANGE Blood Pressure : / mmHG Vent. Rate : 126 BPM Atrial Rate : 159 BPM P-R Int : 122 ms QRS Dur : 082 ms QT Int : 268 ms P-R-T Axes : 066 083 245 degrees QTc Int : 388 ms Sinus tachycardia. with premature supraventricular complexes. Nonspecific ST and T wave abnormality Abnormal ECG When compared with ECG of 13-MAR-2017 09:21, (Unconfirmed) Significant changes have occurred Confirmed by Jaren Jacome MD ([id number]) on 03/21/2017 10:16:17 PM
[2017-03-14 05:02] LABS: BASO% 0.2 % (0.0-0.8); EOS# 0.01 X1000 (0.0-0.7); EOS% 0.1 % (0.0-10.0); HEMATOCRIT 31.2 % (42.0-52.0); HEMOGLOBIN 10.1 g/dL (14.0-18.0); IMM GRAN% 7.3 % (0.0-0.5); LYMPH# 1.26 X1000 (1.2-3.4); LYMPH% 15.3 % (20.5-51.1); MANUAL DIFF NEEDED? YES; MCH 29.4 PG (27-31); MCHC 32.4 g/dL (33-37); MONO# 0.55 X1000 (0.11-0.59); MONO% 6.7 % (1.7-9.3); MPV 12.1 FL (7.4-10.4); NEUT% 70.4 % (42.2-75.2); PLT 202 X1000 (130-400); RBC 3.43 XMIL (4.7-6.1)
[2017-03-14] MEDS: NEO-SYNEPHRINE 100 MG in NS 500 ML IV SCH (05:16)
[2017-03-14 05:35] LABS: BANDS 16 % (0-1); LYMPHS 27 % (21-51); METAMYELOCYTES 2 %; MONO 6 % (1-9); NRBC 3 % (0-0)
[2017-03-14 05:36] LABS: POLYCHROM OCCASIONAL
[2017-03-14 05:37] LABS: LARGE PLATELETS 1+
[2017-03-14 06:06] LABS: ALBUMIN 2.7 g/dL (3.5-5.0); MAGNESIUM 1.9 mg/dL (1.5-2.7); TOTAL BILIRUBIN 0.5 mg/dL (0.20-1.00); TOTAL PROTEIN 4.8 g/dL (6.3-8.3)
[2017-03-14] MEDS ORDERED: HUMALOG DOSE (PARKWAY) SUBQ ONE (06:17)
[2017-03-14] MEDS ORDERED: D50W SYRINGE IV ONE (06:17)
[2017-03-14] MEDS ORDERED: CALCIUM GLUCONATE IV PUSH ONE (06:23)
[2017-03-14] MEDS ORDERED: LEVOPHED 8 MG in D5 1/2 NS 250 ML IV SCH (06:30)
[2017-03-14] MEDS: HUMULIN R DOSE (PARKWAY) SUBQ SCH (06:39)
[2017-03-14 06:59] LABS: POTASSIUM 6.9 mmol/L (3.5-5.1)
[2017-03-14 07:00] LABS: CALCIUM 4.5 mg/dL (8.8-10.2)
--- NOTE | 2017-03-14 07:27 | Diag Imaging Result Document ---
PROCEDURE NAME: CHEST-PORTABLE - 03/14/2017 SUPINE CHEST PORTABLE: COMPARISON: 03/13/2017. FINDINGS: There is an endotracheal tube with its tip located 2 cm above the kindra. Dense infiltrate in the midleft lung remains. The heart is not enlarged. No pleural effusions identified. IMPRESSION: No interval improvement.
--- NOTE | 2017-03-14 08:26 | PROGRESS NOTE ---
DATE: 03/14/2017 VITAL SIGNS: Temperature 96.9 degrees, heart rate 81, respirations 21, blood pressure 71/46 with max doses of Levophed drip and ventilator, O2 saturation is 92% on 50% FiO2. LABORATORY DATA: Hemoglobin 10.1, hematocrit 31.2, white blood count 8200. Sodium 138, potassium 6.9, BUN 104, creatinine 6.7. AST 4340, bilirubin 0.5, ALT 1913, alkaline phosphatase 142, total protein 4.8, albumin 2.7. IMPRESSION AND PLAN: Patient deteriorated overnight and Kiran-Synephrine at max dose was changed to Levophed because of persistent hypotension. He has been in Trendelenburg most of the equities trader and pupils at this time are unresponsive. Right is mid range and left is dilated. There is no spontaneous movement of arms or legs. There was no urine output overnight. Bladder scan this morning shows over [address] Mak is consulted for replacement of [place]. Discussion is made with the family. It is felt that he is terminal and most likely will not survive the day. They are given the option to discontinue ventilator and pressor agents. They will talk with the daughter who is [place] and make this decision. He is made a [id number] level 1. cc: Walker Ly MD
[2017-03-14 12:43] VITALS: BP 110/49
--- NOTE | 2017-03-15 10:55 | DISCHARGE SUMMARY ---
ADMISSION DATE: 03/12/2017 DISCHARGE DATE: 03/14/2017 FINAL DIAGNOSES: 1. Sepsis. 2. Gastroenteritis. 3. Acute renal failure. 4. Hypotension. 5. Sputum culture positive for gram-negative erinn. HISTORY: This is one of several [facility] admissions for this 66-year-old white man, who presented to the emergency room with history of vomiting and diarrhea for a couple of days and because of weakness and hypotension. Was admitted to ICU for hydration and further evaluation. INITIAL LABORATORY: Hemoglobin 15.4, hematocrit 45.6, white blood count 13,200 with 77% neutrophils. Potassium 4.8, BUN 97, creatinine 6.6, calcium 6.8, phosphorus 15.5. HOSPITAL COURSE: Despite aggressive fluid replacement, he continued to be hypotensive. He initially was on Kiran-Synephrine to maintain blood pressure. This was changed early this morning to Levophed. He continued had decrease in urine output. Bladder scan this morning showed 500 mL. He was given multiple liters of bolus of half normal saline. He also was acidotic and was given several doses of bicarb. Antibiotics include Zosyn and vancomycin. Nephrology consultation was obtained with Dr. Joya. He felt that if the patient stabilized he might need dialysis and would therefore need to be transferred to [facility]. Early this morning he became less responsive with fixed pupils, mid-range right and dilated left. This morning potassium was elevated at 6.9. BUN was 104, creatinine 6.7. AST 4340, ALT 1913, alkaline phosphatase 142, bilirubin 0.5. Discussion was made several times with the family, including this morning. Decision was made mid- morning to discontinue ventilator and pressor agents. These were discontinued at about 10 o'clock. His heart rate ceased at 10:18. He was pronounced at 10:23 a.m. PRIMARY CAUSE OF : Was felt to be sepsis. SIGNIFICANT OTHER CONDITIONS INCLUDED: 1. Acute renal failure. 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 He is not a candidate for organ donation because of the sepsis and metastatic carcinoma. cc: Walker Ly MD
== END 2017-03-14 10:18 | disposition expired ==
LOC: P.ED 23:12 → P.MEDSURG 03-12 02:39 → P.ICU 03-12 03:54
PROVIDERS: ADMIT Family Medicine; ATTEND Family Medicine